=== PATIENT | male | born 1945 | race Caucasian/White ===

== ENCOUNTER → 2016-08-02 | Outpatient (CLI) | payer OTHER ==
[~2016-08-02] VITALS: Ht 170.2 cm; Wt 110.2 kg
[~2016-08-02] MED LIST: AAA; ADVAIR HFA 230M12 GM INH; ALBUTEROL INHAL17 GM IH; ALLEGRA ALLERGY60 MG PO; ALLEGRA-D 24 H1 EACH PO; ALLEGRA180 MG PO; AMBIEN 10 MG TA10 MG; AMBIEN 5 MG TABL5 M1 PO; AMLODIPINE BESY10 MG PO; AMOXICILLIN 50500 M1 PO; AZITHROMYCIN 2250 MG PO; CALCITRATE200 MG; CALCITRIOL0.25 MCG PO; CALCITRIOL0.5 MCG; CENTRUM SILVER1 EAC1 PO; CLONAZEPAM 0.50.5 M1; CLONAZEPAM 0.50.5 M1 PO; CLONAZEPAM 1 MG1 M1 PO; COLACE100 MG PO; CYCLOBENZAPRINE10 MG; CYMBALTA60 MG PO; DID NOT BRING LIST; DILAUDID 4 MG TA4 M1 PO; DOLOPHINE HCL10 MG PO; DOLOPHINE HCL5 MG; DOXYCYCLINE 10100 M1 PO; E-MYCIN250 MG PO; ERGOCALCIF50000 UNIT PO; EXELON 9.5 MG9.5 MG; EXELON 9.5 MG9.5 MG TD; EXELON 9.5 MG9.5 MG TOP; EXELON 9.5 MG9.5 MG TRANSDERM; EXELON1 EAC1 TRANSDERM; FISH OIL 1,0001 EAC7; FLEXERIL; FLEXERIL PO; FLOMAX PO; GLUCOSAMINE SU500 MG; GLUCOSE4 GM PO; GLYCOLAX17 GM PO; HUMALOG PE100 UNIT/M SC; LEVAQUIN 500 M500 M1 PO; LEVOTHROID75 MCG PO; LEXAPRO 10 MG T10 M1 PO; LEXAPRO 10 MG T10 M2 PO; LEXAPRO 10 MG T10 MG PO; LEXAPRO20 MG PO; LISINOPRIL2.5 MG PO; LOVAZA1000 MG PO; METHADONE HCL 110 M1 PO; METHADONE HCL 110 MG PO; METHADONE HCL5 MG PO; METHADOSE10 M1 PO; METOCLOPRAMIDE PO; NAMENDA 10 MG T10 MG PO; NAMENDA 5 MG TAB5 M1 PO; NEURONTIN 300300 M1 PO; NEURONTIN 300M300 M2 PO; NEURONTIN600 MG; NEURONTIN600 MG PO; NEXIUM 40 MG CA40 M1 PO; NITROGLYCERIN0.4 MG; NITROGLYCERIN0.4 MG SUBLING; NORVASC 5 MG TAB5 MG PO; NORVASC10 MG; ONDANSETRON ODT8 MG; OTHER; OXYCODONE HCL15 MG PO; OXYCODONE HCL5 M1; OXYCONTIN15 MG PO; PAIN CREAM; PANTOPRAZOLE SO40 M1 PO; PENNSAID112 GM TOP; PERCOCET 10-321 EACH PO; PLAVIX 75 MG TA75 M1 PO; PLAVIX 75 MG TA75 MG PO; POTASSIUM CHLO10 ME1 PO; PRILOSEC40 MG PO; PROTONIX40 MG PO; PROVIGIL 100 M100 MG; PROVIGIL 100 M100 MG PO; PROVIGIL 200 M200 M1 PO; PROVIGIL PO; REGLAN 10 MG TA10 M1 PO; REGLAN 10 MG TA10 MG PO; ROXICODONE15 M1 PO; ROXICODONE5 M1 PO; SINGULAIR 10 MG10 M1; SINGULAIR 10 MG10 M1 PO; SLOW-MAG64 MG PO; STOOL SOFTENER240 MG PO; SYNTHROID125 MCG; SYNTHROID75 MCG PO; SYSTANE 0.3-0.1 EACH OP; TIZANIDINE HCL 22 M1 PO; TRIAMCINOLONE10 G1; VIIBRYD20 MG PO; VITAMIN D400 UNI1 PO; VITAMIN D400 UNI4; VOLTAREN GEL 1100 G2 TOP; ZOFRAN ODT4 MG PO; ZOFRAN8 MG PO; [UNRECOGNIZED DRUG - OTHER]; [UNRECOGNIZED DRUG - OTHER]
--- NOTE | ~2016-08-02 | HPC ---
[facility] [place] [place] [address] PAIN MANAGEMENT CONSULTATION Name: OMARI RUSSO [id number] Admission: 08/02/16 Attend Phys: Ignacio Ni DO Discharge: Date of : 43 Report #: [id number] THIS REPORT FOR: //name// CC: Tino Ni HISTORY OF PRESENT ILLNESS: The patient is a pleasant 71-year-old gentleman being treated for myofascial pain, neuropathic pain, and lumbar radiculopathy, requiring complex medication management. He was last seen in the pain clinic on 05/17/[address] Nehemiah Smith in my absence. I had prior seen him on 03/01/2016. He has continued on baseline medication unchanged. He uses methadone 5 mg b.i.d., Percocet 10/325 one tablet 2-3 times a day, limit 75 tablets for 30 days, gabapentin 300 mg t.i.d., Namenda 10 mg b.i.d. and tizanidine 2 mg up to 4 times a day for spasm. He returns to pain clinic today noting medications are generally providing sufficient analgesia to participate in activities of daily living. Notes subjective pain score primarily back and both legs with some ongoing headaches. Subjective pain score of 5/10, exacerbated with activity and walking. PHYSICAL EXAMINATION: Unchanged. GENERAL: A 71-year-old gentleman, moderately obese with a BMI of 38.1 kilograms per meter squared. VITAL SIGNS: Blood pressure is modestly elevated at 151/90, pulse is 77, respirations are 18. NEUROLOGIC: Alert and oriented to person, place, and time. Judged to be a reasonable historian. He has a little bit of shy affect, somewhat of stammering speech pattern. This is all unchanged from baseline. I have been treating the patient now for quite some time. I believe our initial contact was back in 2005. He rises from the chair using armrest. Gait is antalgic, but tandem. He is not using a cane presently. Some diffuse tenderness across the low back. He has osteoarthritis of bilateral upper and lower extremities. ASSESSMENT: Chronic pain syndrome requiring complex medication management, history of lumbar radiculopathy, myofascial pain, and stable on baseline medications. RECOMMENDATION: Renew current medication unchanged for another 3 months. Pain impact score is about 20/70. Opiate risk assessment tool scores patient in the low risk category. Follow up in 3 months for reevaluation. <ELECTRONICALLY SIGNED> By: Ignacio Ni DO 08/07/16 0758 1201 1933 Ignacio Ni DO /nt
[2016-08-02 11:05] VITALS: BP 151/90
== END ==
LOC: PAIN 07:06
DX: M54.16 Radiculopathy, lumbar region (principal); G89.4 Chronic pain syndrome; M79.1 Myalgia; E66.01 Morbid (severe) obesity due to excess calories; Z68.38 Body mass index [BMI] 38.0-38.9, adult; I10 Essential (primary) hypertension; R09.02 Hypoxemia; Z88.1 Allergy status to other antibiotic agents

== ENCOUNTER → 2016-11-28 | Outpatient (CLI) | payer OTHER ==
[~2016-11-28] VITALS: Ht 170.2 cm; Wt 112.0 kg
[~2016-11-28] MED LIST changes: +ZOLOFT100 MG PO
--- NOTE | ~2016-11-28 | HPC ---
[facility] [address] [place] [address] PAIN MANAGEMENT CONSULTATION Name: OMARI RUSSO Room #: REG CLK[facility] RosaOfelia.#: [id number] Admission: 11/28/16 Attend Phys: Ignacio Ni DO Discharge: Date of : 43 Report #: [id number] THIS REPORT FOR: //name// CC: Tino Ni The patient is a 71-year-old gentleman, well known to pain clinic, typically treated for myofascial pain, neuropathic pain, lumbar radiculopathy requiring high risk complex medication management. Last seen in the pain clinic 08/02/2016. He has been maintained for quite some time on current medication including methadone 5 mg b.i.d., Percocet 10/325 one tablet 2-3 times a day, limit 75 tablets for 30 days, gabapentin 300 mg t.i.d., Namenda 10 mg b.i.d., tizanidine 2 mg up to 4 times a day for spasm. He returns to pain clinic today noting that overall medications are providing sufficient analgesia to participate in activities of daily living. He is the active "parent" caring for his two grandchildren. Daughter graduated from high school in the last year the June 25, son is gradually this year and has been accepted to [employer]. The patient is very proud of their accomplishments. He has a little bit of stuttering speech, but he is alert and oriented to person, place and time. He notes his pain is a 5 on VAS, primarily low back, both legs, and has some ongoing headaches. PHYSICAL EXAMINATION: Shows a 71-year-old gentleman, moderately obese with a BMI of 38.7 kg/m2, blood pressure 154/78, pulse 90, and respirations 20. Alert and oriented, again a little bit of stutter speech defect. The patient exhibits some word searching. This is somewhat his baseline. He does have some chronic anxiety and takes Zoloft for depression. Diabetes treated with insulin. Hypertension and coronary artery disease, takes amlodipine and Plavix. 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 He uses clonazepam 0.5 at bedtime for leg spasm. Other medications include the aforementioned schedule 2 narcotic and membrane stabilizing agents. Physical exam is otherwise unchanged from last visit. We reviewed the fact that opiate medications are being used to provide analgesia adequate to support activities of daily living, not attempting to achieve a specific pain score on the 0-10 Visual Analog Scale. The current opiate medications are providing sufficient analgesia to allow the patient to participate in activities of daily living. The patient is not exhibiting any aberrant behavior suggestive of drug diversion. The patient is not having any adverse reactions to medications. The patient is not suffering from daytime somnolence or mental acuity changes. The patient is managing opiate-induced [address] [address] PAIN MANAGEMENT CONSULTATION Name: OMARI RUSSO Room #: REG CL Vikki#: [id number] Admission: 11/28/16 Attend Phys: Ignacio Ni DO Discharge: Date of : 43 Report #: [id number] constipation with appropriate rbzu-xjs-qulrvrn agents and dietary considerations. The patient was counseled on concern for caution with operating a motor vehicle while using opiate medications. A physical exam was performed and the patient's functional status was evaluated. All patients with back pain were advised against the bed rest greater than 4 days and were advised to return to normal activities. Pain score assessment was noted and the treatment plan was reviewed with the patient. All current medications, both prescribed and OTC were reviewed and reconciled on the electronic medical record. Tobacco screening was accomplished and smoking cessation was advised when indicated. BMI was noted and diet/exercise modification was recommended for all patients following outside normal parameters. I reviewed with the patient today their responsibilities to safeguard prescription medications, reviewed their responsibility to utilize medications only as prescribed by the physician. They are to seek and receive pain medications only from 1 physician group ( [facility]). They are to use 1 pharmacy and keep the clinic informed if they change pharmacies. Their responsibilities include making followup visits in a timely fashion and to avoid abrupt discontinuation of medication usage. Their responsibilities further include bringing their medications (bottles from the pharmacy with residual pills) to the visit for possible confirmation of pill counts and the patient understands it is their responsibility to submit to random drug screens to ensure both that the medications prescribed are present, and that no other controlled substances are present. All prescriptions provided today were generated electronically. ASSESSMENT: Myofascial pain, neuropathic pain, axial back pain, and lumbar radiculopathy, all requiring high risk complex medication management, stable on baseline medications. RECOMMENDATIONS: Continue current medication unchanged, methadone 5 mg b.i.d., Percocet 10/325 one tablet 2-3 times a day, limit 75 tablets for 30 days, gabapentin 300 mg t.i.d., Namenda 10 mg b.i.d., tizanidine 2 mg up to 4 times a day. I have renewed the patient's [place] disabled placard, he cannot walk greater than 50 feet without stopping. Discharged in good and stable condition today. Follow up in 2 months for reevaluation. <ELECTRONICALLY SIGNED> By: Ignacio Ni DO 11/29/16 0705 1234 1710 Ignacio Ni DO /nt
[2016-11-28 10:01] VITALS: BP 154/78
== END ==
LOC: PAIN 06:59
DX: M54.16 Radiculopathy, lumbar region (principal); M79.1 Myalgia

== ENCOUNTER → 2016-12-26 | Outpatient (CLI) | payer OTHER | LOC: MRI 08:27 → ULTRA 08:27 → MRI 14:59 | DX: M47.892 Other spondylosis, cervical region (principal); R20.2 Paresthesia of skin; R92.8 Other abnormal and inconclusive findings on diagnostic imaging of breast ==

== ENCOUNTER 2017-01-22 17:28 | Emergency (ER) | payer OTHER ==
[~2017-01-22] VITALS: Ht 185.4 cm; Wt 97.5 kg
--- NOTE | ~2017-01-22 | EKG ---
[place] [address] [address] [facility] [place] [address] ELECTROCARDIOGRAM REPORT Name: OMARI RUSSO Room #: REG Vikki#: [id number] Admission: 01/22/17 Attend Phys: Discharge: Date of : 43 Report #: [id number] THIS REPORT FOR: //name// [facility] ED Test Date: 2017-01-22 Test Time: 18:11:58 Pat Name: OMARI RUSSO Department: Room: Gender: M Historical Records Administrator: [id number] : 1945 Requested By: Tino Khan Order Number: [id number] MD: Measurements Intervals [place] Rate: 70 P: 7 [place]: 174 QRS: -30 QRSD: 109 T: -57 QT: 406 QTc: 439 Interpretive Statements Sinus rhythm Left axis deviation Anteroseptal infarct, age indeterminate Nonspecific T abnormalities, inferior leads Compared to ECG 01/09/2015 15:05:37 Left-axis deviation now present Myocardial infarct finding now present T-wave abnormality still present [email or web address] By: 181 [id number] Epiphany EpiphanyMD /EPI
[2017-01-22 18:22] LABS: HEMATOCRIT 38.6 % (42.0-52.0); HEMOGLOBIN 12.6 gm/dL (14.0-18.0); MCH 32.1 pg (26.0-34.0); MCHC 32.7 g/dL (28.0-37.0); MCV 98.2 fL (80.0-100.0); RBC 3.93 mil/uL (4.50-6.00); RDW 14.7 % (10.5-14.5); WBC 4.1 thou/uL (4.0-11.0)
[2017-01-22 18:29] LABS: ANION GAP 6 mmol/L (7-16); BUN 16 mg/dL (7-18); CALCIUM 8.5 mg/dL (8.5-10.1); CHLORIDE 104 mmol/L (98-107); CO2 31 mmol/L (21-32); GLUCOSE 186 mg/dL (74-106); POTASSIUM 3.8 mmol/L (3.5-5.1); SODIUM 141 mmol/L (136-145)
[2017-01-22 18:37] LABS: TROPONIN-I < 0.04 ng/mL (<0.06)
[2017-01-22 20:14] VITALS: BP 144/81
[2017-01-23] MEDS ORDERED: TIZANIDINE HCL 22 M1 PO (09:52)
[2017-01-23] MEDS ORDERED: NEURONTIN 300300 M1 PO (09:52)
[2017-01-23] MEDS ORDERED: PERCOCET 10-321 EACH PO (09:52)
[2017-01-23] MEDS ORDERED: NAMENDA 10 MG T10 MG PO (09:52)
[2017-01-23] MEDS ORDERED: METHADONE HCL5 MG PO (09:52)
== END 2017-01-22 20:15 | disposition left against medical advice (07) ==
LOC: ER 17:28
PROVIDERS: Emergency Medicine
DX: S01.81XA Laceration without foreign body of other part of head, initial encounter (principal); E11.9 Type 2 diabetes mellitus without complications; J44.9 Chronic obstructive pulmonary disease, unspecified; Z86.73 Personal history of transient ischemic attack (TIA), and cerebral infarction without residual deficits; Z98.890 Other specified postprocedural states; Z88.1 Allergy status to other antibiotic agents; Z88.6 Allergy status to analgesic agent; Z88.8 Allergy status to other drugs, medicaments and biological substances; Z88.2 Allergy status to sulfonamides; Z91.011 Allergy to milk products; W18.09XA Striking against other object with subsequent fall, initial encounter; Y93.01 Activity, walking, marching and hiking; Y92.89 Other specified places as the place of occurrence of the external cause; Y99.8 Other external cause status

== ENCOUNTER → 2017-06-05 | Outpatient (CLI) | payer OTHER ==
[~2017-06-05] VITALS: Ht 170.2 cm; Wt 116.1 kg
[~2017-06-05] MED LIST changes: +B-12500 MCG PO; +FOLIC ACID 40400 MC1 PO; +IPRAT-ALBUT 0.5-3 ML INH; +LANTUS100 UNIT/M SUBQ; +MIRALAX17 GM PO; +NOVOLOG100 UNIT/1 SUBQ
--- NOTE | ~2017-06-05 | HPC ---
[facility] [place] [address] [place] [address] PAIN MANAGEMENT CONSULTATION Name: OMARI RUSSO [facility] #[facility] [id number] Admission: 06/05/17 Attend Phys: Ignacio Ni DO Discharge: Date of : 43 Report #: [id number] THIS REPORT FOR: //name// CC: Tino Ni HISTORY OF PRESENT ILLNESS: The patient is a very pleasant 72-year-old gentleman long treated for symptomatic lumbar radiculopathy, cervical radiculopathy, axial back pain requiring complex medication management. At last visit, on 02/12/2017, we continued the patient on baseline medication. He prior had a cervical epidural injection back in January with overall improvement of baseline pain. He returns to pain clinic today noting pain remains problematic 6-7 on a VAS. He would like to repeat lumbar epidural injection due to some increasing lumbar radicular pain and paresthesia, though he has continued on his Eliquis. PHYSICAL EXAMINATION: Shows a 72-year-old gentleman, BMI is quite elevated at 40.1 kilograms per meter squared. She has subjective pain score of 6-7 on a VAS. Blood pressure 138/77, pulse 82, respiration 16. He has had a little bit of subjective dizziness, though he denies recent falls. Extraocular muscles are intact. There is no nystagmus, lateral gaze deviation. Cervical range of motion is full. Upper extremity strength is preserved. Rises from chair using armrest. Has a modestly antalgic gait. Lumbar flexion is good to 80 degrees, but upon arising he does have some subjective vertigo. Again, no nystagmus noted. Lower extremity strength is modestly diminished, but symmetric. Straight leg raise is grossly positive bilaterally, right greater than left. We reviewed the fact that opiate medications are being used to provide analgesia adequate to support activities of daily living, not attempting to achieve a specific pain score on the 0-10 Visual Analog Scale. The current opiate medications are providing sufficient analgesia to allow the patient to participate in activities of daily living. The patient is not exhibiting any aberrant behavior suggestive of drug diversion. The patient is not having any adverse reactions to medications. The patient is not suffering from daytime somnolence or mental acuity changes. The patient is managing opiate-induced constipation with appropriate qcvd-vhh-fkwztlo agents and dietary considerations. The patient was counseled on concern for caution with operating a motor vehicle while using opiate medications. A physical exam was performed and the patient's functional status was evaluated. All patients with back pain were advised against the bed rest greater than 4 days and were advised to return to normal activities. Pain score assessment was noted and the treatment plan was reviewed with the patient. All current medications, both prescribed and OTC were reviewed and reconciled on the electronic medical record. Tobacco screening was accomplished and smoking cessation was advised when indicated. BMI was noted and diet/[place] [address] PAIN MANAGEMENT CONSULTATION Name: OMARI RUSSO Room #: REG CL Vikki#: [id number] Admission: 06/05/17 Attend Phys: Ignacio Ni DO Discharge: Date of : 43 Report #: [id number] modification was recommended for all patients following outside normal parameters. I reviewed with the patient today their responsibilities to safeguard prescription medications, reviewed their responsibility to utilize medications only as prescribed by the physician. They are to seek and receive pain medications only from 1 physician group ( [facility]). They are to use 1 pharmacy and keep the clinic informed if they change pharmacies. Their responsibilities include making followup visits in a timely fashion and to avoid abrupt discontinuation of medication usage. Their responsibilities further include bringing their medications (bottles from the pharmacy with residual pills) to the visit for possible confirmation of pill counts and the patient understands it is their responsibility to submit to random drug screens to ensure both that the medications prescribed are present, and that no other controlled substances are present. All prescriptions provided today were generated electronically. ASSESSMENT: 1. Symptomatic lumbar radiculopathy. 2. Myofascial pain. 3. History of cervical radiculopathy, requiring complex medication management, stable on baseline medications. RECOMMENDATIONS: 1. Continue current medication unchanged, methadone 5 mg b.i.d.; Percocet 10/325 one tablet 2-3 times a day, limit 75 tablets for 30 days; gabapentin 300 mg t.i.d.; tizanidine 2 mg up to 4 times a day for spasm. Continue Namenda 10 mg b.i.d. Discharged in good and stable condition. 2. Follow up next week for epidural injection under fluoroscopy, lumbar spine, off Plavix for 7 days (L4-L5). <ELECTRONICALLY SIGNED> By: Ignacio Ni DO 06/11/17 0744 1217 1314 Ignacio Ni DO /nt
[2017-06-05 11:24] VITALS: BP 138/77
== END ==
LOC: PAIN 07:01
DX: M54.16 Radiculopathy, lumbar region (principal); M54.12 Radiculopathy, cervical region; M79.1 Myalgia; Z79.899 Other long term (current) drug therapy

== ENCOUNTER → 2017-11-14 | Outpatient (CLI) | payer OTHER ==
[~2017-11-14] VITALS: Ht 170.2 cm; Wt 117.5 kg
[~2017-11-14] MED LIST changes: -B-12500 MCG PO; -FOLIC ACID 40400 MC1 PO; -IPRAT-ALBUT 0.5-3 ML INH; -LANTUS100 UNIT/M SUBQ; -MIRALAX17 GM PO; -NOVOLOG100 UNIT/1 SUBQ
--- NOTE | ~2017-11-14 | HPC ---
[facility] [place] [address] PAIN MANAGEMENT CONSULTATION Name: OMARI RUSSO Room #: REG LAUREN YouOfeliaScarletOfelia#: [id number] Admission: 11/14/17 Attend Phys: Steve Smith MD Discharge: Date of : 43 Report #: [id number] THIS REPORT FOR: //name// CC: Tino Smith DATE OF SERVICE: 11/14/2017 FOLLOWUP COMPLAINT: Here for medications. FOLLOWUP HISTORY: The patient is a 72-year-old gentleman who has been seen and followed in the pain clinic. He has been seen by Dr. Ignacio Ni. He has multiple morbidities, which include chronic low back pain. Has axial back pain as well as cervical pain. He has been treated with complex medication management. He takes Plavix. He has undergone epidural steroid injections. He is on Plavix today. He would like to consider an epidural steroid injection. He would like to have his medications renewed. He will stop taking his Plavix medication and return to the pain clinic for an epidural steroid injection in about a week. He rates his pain as an 8/10. Also, has a pinched nerve in his neck as well as involvement in his left hand. He has some pain in his low back that radiates down into the L5-S1 area. He feels that his medications are helpful. Not having any complication from their use. He is aware that opioid medications can be habit forming. He is aware that they can be less effective over time as a result of tolerance. ALLERGIES: IODINE DYE, SULFA, ASPIRIN, CYMBALTA, AND MELOXICAM. CURRENT MEDICATIONS: Tizanidine 2 mg 4 times daily, oxycodone 10/325, methadone 5 mg b.i.d., Namenda 10 mg b.i.d., gabapentin 300 mg t.i.d., Flexeril 10 mg t.i.d., Zoloft 100 mg, insulin subcutaneous 4 times daily, Exelon 9.5 mg patch, Reglan 10 mg before meals and at bedtime, Plavix 75 mg, clonazepam 0.5 mg, Zofran 8 mg b.i.d., Nitrostat 0.4 mg sublingual, Lovaza 100 mg b.i.d., Drisdol 50,000 units weekly, Friday, Friday, and Friday, and amlodipine 10 mg daily. PAST MEDICAL HISTORY: Diabetes, lung disease, and liver disease. PAST SURGICAL HISTORY: Carpal tunnel surgery bilaterally in 1999, knee surgery scope in 1999, and muscle biopsies x 3. SOCIAL HISTORY: Disabled. REVIEW OF SYSTEMS: Headaches, chronic sinus problems, abdominal pain, lightheadedness, easy bruising. LABORATORY DATA: MRI of the cervical spine dated 12/26/2016: 1. C3-C4 disk narrowing with a prominent posterior disk/[place] [address] PAIN MANAGEMENT CONSULTATION Name: OMARI RUSSO Room #: REG Nora Florez#: [id number] Admission: 11/14/17 Attend Phys: Steve Smith MD Discharge: Date of : 43 Report #: [id number] effacement of the ventral thecal sac, no significant spinal canal stenosis. This disk osteophyte complex combines with bilateral uncovertebral joint spurring and facet arthropathy to cause fairly severe bilateral neural foraminal stenosis. 2. C5-C4 disk narrowing with a small posterior disk osteophyte complex without central spinal canal stenosis. There is bilateral uncovertebral joint spurring/hypertrophy causing bilateral neural foraminal stenosis, more severe on the right. 3. C5-C6 disk narrowing with a prominent posterior disk osteophyte complex causing central spinal canal stenosis and slight spinal cord deformity. It combines with bilateral uncovertebral joint spurring/hypertrophy and mild bilateral facet arthrosis to cause fairly severe bilateral neural foraminal stenosis. 4. C6-C7 disk narrowing with a small posterior disk/osteophyte complex without central spinal canal stenosis. There is bilateral uncovertebral joint spurring/hypertrophy, that combines with mild facet arthropathy to cause bilateral neural foraminal stenosis. C7-T1, mild facet arthrosis with slight degenerative anterolisthesis of C7 on T1. There is left uncovertebral joint spurring causing left neural foraminal stenosis. MRI of the lumbar spine dated 07/24/2006, findings: There is diffuse lower lumbar facet degenerative changes. Endplate degenerative changes are seen at L5-S1. There is disk bulging. The axial images at L5-S1 showed diffuse bulging asymmetry to the right with bilateral foraminal and lateral recess narrowing. Central canal is maintained. L4-L5 shows facet degenerative changes with some disk bulging without focal herniation or asymmetry. L3-L4 and L2-L3 showed no herniated disk pulposus, or central spinal stenosis. There is mild wedging of L2 which appears chronic. PAIN CLINIC ASSESSMENT: 1. History of osteoarthritis involving the left lower extremity, left upper extremity, right lower extremity, and right upper extremity. The patient is not being treated for rheumatoid arthritis. 2. Height 5 feet 7 inches, weight 259 pounds, BMI is 40. 3. Vital signs: Blood pressure 141/80, pulse 86, respiratory rate is 18, room air saturation 98%. 4. Pain intensity 8/10. 5. Fall risk. The patient has not fallen in the last 3 months. 6. Blood thinner. The patient is on Plavix. 7. History of hypertension. The patient is being treated for hypertension. 8. Risk assessment tool, low risk for use of opioids. 9. Functional assessment tool. 10. Recreational drugs. The patient denies use of recreational drugs. 11. Tobacco: The patient has never smoked. 12. Alcohol: The patient denies use of alcoholic beverages. [facility] [address] [place] [address] PAIN MANAGEMENT CONSULTATION Name: OMARI RUSSO Room #: REG CLI [facility]#: [id number] Admission: 11/14/17 Attend Phys: Steve Smith MD Discharge: Date of : 43 Report #: [id number] PHYSICAL EXAMINATION: GENERAL: The patient is a well-developed, well-nourished white male, appears his stated age. He is slightly obese. Affect is appropriate. Speech is fluent. HEENT: Normocephalic, atraumatic. Extraocular eye muscles intact. Sclerae nonicteric. Mucous membranes are moist. CHEST: Clear to auscultation. EXTREMITIES: Upper extremity muscle strength is judged to be 5/5 for the major muscle groups. The patient without significant scoliosis, kyphosis, or lordosis. The patient has pain and discomfort that is in his low back area. Radiates down into the L5-S1 area. He would like to proceed with an epidural steroid injection. The patient is on Plavix. We will have the patient stop the Plavix medication and then we will proceed with an epidural steroid injection. IMPRESSION: 1. Chronic low back pain. 2. Diabetes. 3. Lung disease. 4. Liver disease. RECOMMENDATION: We will proceed with an epidural steroid injection. The patient will stop his Plavix for the next 5 days. He will then return to the pain clinic at which time we will proceed with an epidural steroid injection to help with control the pain. We would like to thank you for letting us participate in his care. We hope he continues to improve. By: 1800 0311 Steve Smith MD /nt
[2017-11-14 14:41] VITALS: BP 141/80
== END ==
LOC: PAIN 07:04
DX: M54.5 Low back pain (principal); G89.29 Other chronic pain; E11.9 Type 2 diabetes mellitus without complications; J98.4 Other disorders of lung; K76.9 Liver disease, unspecified; Z79.899 Other long term (current) drug therapy

== ENCOUNTER 2017-12-14 21:20 | Emergency (ER) | payer OTHER ==
[~2017-12-14] VITALS: Ht 170.2 cm; Wt 113.4 kg
[2017-12-14 21:21] VITALS: BP 128/77
== END 2017-12-14 22:00 | disposition home or self-care (01) ==
LOC: ER 21:20
DX: T16.1XXA Foreign body in right ear, initial encounter (principal); J44.9 Chronic obstructive pulmonary disease, unspecified; E11.9 Type 2 diabetes mellitus without complications; Z79.4 Long term (current) use of insulin; Z86.73 Personal history of transient ischemic attack (TIA), and cerebral infarction without residual deficits; Z90.49 Acquired absence of other specified parts of digestive tract; Z88.1 Allergy status to other antibiotic agents; Z88.6 Allergy status to analgesic agent; Z88.8 Allergy status to other drugs, medicaments and biological substances; Z91.041 Radiographic dye allergy status; Z88.2 Allergy status to sulfonamides; Z91.011 Allergy to milk products

== ENCOUNTER 2018-01-07 02:04 | Inpatient (IN) | payer OTHER ==
[~2018-01-07] VITALS: Ht 170.2 cm; Wt 117.9 kg
--- NOTE | ~2018-01-07 | EKG ---
[address] [place] [address] ELECTROCARDIOGRAM REPORT Name: OMARI RUSSO Room #: 359-P ADM IN M.R.#: [id number] Admission: 01/07/18 Attend Phys: Latia Mitchell MD Discharge: Date of : 43 Report #: [id number] THIS REPORT FOR: //name// [facility] ED Test Date: 2018-01-07 Test Time: 02:45:31 Pat Name: OMARI RUSSO Department: Room: 359 Gender: M Suede Brusher: ARNEL ROBLES : 1945 Requested By: Nelli Valentine Order Number: [id number] MD: Edenilson Marcus Measurements Intervals [place] Rate: 98 P: 34 [place]: 139 QRS: -8 QRSD: 89 T: 18 QT: 348 QTc: 445 Interpretive Statements Sinus rhythm Poor R wave progression Compared to ECG 01/22/2017 18:11:58 Nonspecific T wave abnormality no longer present Electronically Signed On 01-07-2018 9:15:35 CDT by Edenilson Marcus [email or web address] <ELECTRONICALLY SIGNED> By: Edenilson Marcus MD, [facility] 01/07/18 0915 0245 Edenilson Marcus MD, [facility] /EPI
--- NOTE | ~2018-01-07 | EKG ---
[address] [address] ELECTROCARDIOGRAM REPORT Name: OMARI RUSSO Room #: 359-P ADM IN M.R.#: [id number] Admission: 01/07/18 Attend Phys: Latia Mitchell MD Discharge: Date of : 43 Report #: [id number] THIS REPORT FOR: //name// [facility] ED Test Date: 2018-01-07 Test Time: 02:25:10 Pat Name: OMARI RUSSO Department: Room: 359 Gender: M Driller Helper: lyndon : 1945 Requested By: Nelli Valentine Order Number: [id number] MD: Edenilson Marcus Measurements Intervals [place] Rate: 94 P: 37 [place]: 172 QRS: -20 QRSD: 86 T: QT: 430 QTc: 538 Interpretive Statements Sinus rhythm Borderline left axis deviation Borderline T wave abnormalities Prolonged QT interval Compared to ECG 01/22/2017 18:11:58 Prolonged QT interval now present Myocardial infarct finding no longer present T-wave abnormality still present Electronically Signed On 01-07-2018 9:14:36 CDT by Edenilson Marcus [email or web address] <ELECTRONICALLY SIGNED> By: Edenilson Marcus MD, FAC 01/07/18 0914 4 4 Edenilson Marcus MD, FAC /EPI
[2018-01-07 02:14] VITALS: BP 126/87
[2018-01-07 02:45] LABS: BE(vivo) 2.7 mmol/L (-2 to +3); HCO3 28.3 mmol/L (22.0-26.0); PCO2 48.1 mmHg (35.0-45.0); PO2 70.3 mmHg (80.0-100.0); pH 7.387 (7.360-7.450); sO2 93.8 % (92.0-98.0)
[2018-01-07 02:55] LABS: ABSOLUTE NEUTROPHILS 3.3 thou/uL (1.4-8.2); ANION GAP 8 mmol/L (7-16); BASOPHILS 0.7 % (0.0-2.0); BUN 16 mg/dL (7-18); CALCIUM 8.7 mg/dL (8.5-10.1); CHLORIDE 105 mmol/L (98-107); CO2 30 mmol/L (21-32); CREATININE 0.9 mg/dL (0.7-1.3); EOSINOPHILS 4.5 % (0.0-3.0); GLUCOSE 125 mg/dL (74-106); HEMATOCRIT 29.4 % (42.0-52.0); HEMOGLOBIN 9.4 gm/dL (14.0-18.0); LYMPHOCYTES 17.2 % (24.0-44.0); MCH 29.2 pg (26.0-34.0); MCHC 32.1 g/dL (28.0-37.0); MCV 91.1 fL (80.0-100.0); MONOCYTES 11.3 % (1.0-8.0); PLATELET COUNT 215 thou/uL (150-400); POLYS 66.3 % (36.0-66.0); POTASSIUM 4.2 mmol/L (3.5-5.1); RBC 3.23 mil/uL (4.50-6.00); RDW 20.6 % (10.5-14.5); SODIUM 143 mmol/L (136-145)
[2018-01-07 03:04] LABS: ALBUMIN 3.8 g/dL (3.4-5.0); MAGNESIUM 2.1 mg/dL (1.8-2.4); SGOT 33 U/L (15-37); SGPT 25 U/L (30-65); TOTAL BILIRUBIN 0.6 mg/dL (<0.1-1.0); TOTAL PROTEIN 7.7 g/dL (6.4-8.2); TROPONIN-I <0.06 ng/mL (<0.06)
[2018-01-07 04:35] LABS: ANISOCYTOSIS 2+; LARGE PLATELETS FEW; OVALOCYTES 1+
[2018-01-07 06:47] VITALS: BP 151/86
[2018-01-07 07:11] VITALS: BP 125/73
[2018-01-07 07:50] LABS: % SATURATION 15 % (20-39); IRON 53 ug/dL (65-175); TIBC 359 ug/dL (250-450)
[2018-01-07 08:01] VITALS: BP 155/79
[2018-01-07 08:12] LABS: FOLIC ACID 5.8 ng/mL (8.6-58.9)
[2018-01-07 15:14] VITALS: BP 135/74
[2018-01-07 19:10] VITALS: BP 126/77
[2018-01-08 00:01] VITALS: BP 118/86
[2018-01-08 03:59] VITALS: BP 130/73
[2018-01-08 05:40] LABS: HEMATOCRIT 27.6 % (42.0-52.0); HEMOGLOBIN 8.8 gm/dL (14.0-18.0); MCH 29.2 pg (26.0-34.0); MCHC 31.7 g/dL (28.0-37.0); MCV 91.9 fL (80.0-100.0); WBC 6.2 thou/uL (4.0-11.0)
[2018-01-08 05:53] LABS: CALCIUM 8.5 mg/dL (8.5-10.1); CREATININE 0.9 mg/dL (0.7-1.3); POTASSIUM 4.6 mmol/L (3.5-5.1)
[2018-01-08 08:22] VITALS: BP 135/82
[2018-01-08 16:16] VITALS: BP 146/78
[2018-01-08 19:25] VITALS: BP 122/69
[2018-01-09 04:20] VITALS: BP 135/87
[2018-01-09 05:41] LABS: HEMATOCRIT 27.8 % (42.0-52.0); MCH 29.9 pg (26.0-34.0); MCHC 32.5 g/dL (28.0-37.0); RBC 3.02 mil/uL (4.50-6.00); RDW 21.5 % (10.5-14.5); WBC 7.1 thou/uL (4.0-11.0)
[2018-01-09 05:56] LABS: CALCIUM 8.7 mg/dL (8.5-10.1); MAGNESIUM 2.3 mg/dL (1.8-2.4); POTASSIUM 4.7 mmol/L (3.5-5.1)
[2018-01-09 07:20] VITALS: BP 124/63
[2018-01-09 12:05] VITALS: BP 118/61
[2018-01-09 16:43] VITALS: BP 118/61
[2018-01-09 19:19] VITALS: BP 133/66
[2018-01-10 07:14] LABS: HEMATOCRIT 27.3 % (42.0-52.0); MCH 30.2 pg (26.0-34.0); MCHC 33.2 g/dL (28.0-37.0); WBC 7.7 thou/uL (4.0-11.0)
[2018-01-10 07:25] LABS: CALCIUM 8.7 mg/dL (8.5-10.1); POTASSIUM 4.1 mmol/L (3.5-5.1)
[2018-01-10 08:18] VITALS: BP 119/69
[2018-01-10 20:13] VITALS: BP 124/72
[2018-01-11 07:59] VITALS: BP 131/80
[2018-01-11 19:57] VITALS: BP 136/83
[2018-01-12 07:15] VITALS: BP 148/88
[2018-01-12 08:43] VITALS: BP 148/88
[2018-01-12] MEDS ORDERED: FOLIC ACID 40400 MC1 PO (12:02)
[2018-01-12] MEDS ORDERED: LANTUS100 UNIT/M SUBQ (12:02)
[2018-01-12] MEDS ORDERED: B-12500 MCG PO (12:02)
== END 2018-01-12 18:13 | DRG 189 ==
LOC: ER 02:04 → EROBS 04:43 → 3W 04:43 → SICU 04:43 → 3W 07:43 → SICU 01-09 11:56 → ENTRNSPT 01-12 16:29 → SICU 01-12 18:13
PROVIDERS: Hospitalist; Internal Medicine; Nurse Practitioner Acute Care; Student in an Organized Health Care Education/Training Program
DX: J96.21 Acute and chronic respiratory failure with hypoxia (principal); F11.20 Opioid dependence, uncomplicated; J44.1 Chronic obstructive pulmonary disease with (acute) exacerbation; K92.2 Gastrointestinal hemorrhage, unspecified; M54.9 Dorsalgia, unspecified; D64.9 Anemia, unspecified; Z60.2 Problems related to living alone; M62.84 Sarcopenia; F03.90 Unspecified dementia, unspecified severity, without behavioral disturbance, psychotic disturbance, mood disturbance, and anxiety; E11.43 Type 2 diabetes mellitus with diabetic autonomic (poly)neuropathy; K31.84 Gastroparesis; E53.8 Deficiency of other specified B group vitamins; I95.9 Hypotension, unspecified; M48.00 Spinal stenosis, site unspecified; M54.10 Radiculopathy, site unspecified; G89.4 Chronic pain syndrome; Z88.2 Allergy status to sulfonamides; Z90.49 Acquired absence of other specified parts of digestive tract; Z98.42 Cataract extraction status, left eye; Z98.41 Cataract extraction status, right eye; Z86.73 Personal history of transient ischemic attack (TIA), and cerebral infarction without residual deficits; Z88.8 Allergy status to other drugs, medicaments and biological substances; Z88.6 Allergy status to analgesic agent; Z88.1 Allergy status to other antibiotic agents; Z91.041 Radiographic dye allergy status; Z91.011 Allergy to milk products; Z79.4 Long term (current) use of insulin; Z28.21 Immunization not carried out because of patient refusal
CPT/HCPCS: 10879; 15002

== ENCOUNTER 2018-01-12 14:46 | Inpatient (IN) | payer OTHER ==
[~2018-01-12] VITALS: Ht 170.2 cm; Wt 117.9 kg
--- NOTE | ~2018-01-12 | H ---
[facility] [place] [address] HISTORY AND PHYSICAL Name: OMARI RUSSO Room #: 505-P ADM IN M.R.#: [id number] Admission: 01/12/18 Attend Phys: Liam Simons MD Discharge: Date of : 43 Report #: [id number] THIS REPORT FOR: //name// CC: Liam Prieto DATE OF SERVICE: 01/12/2018 HISTORY OF PRESENT ILLNESS: This is a 72-year-old male, admitted to [facility] with complaints of shortness of breath. He was diagnosed with an acute on chronic hypoxic respiratory failure and acute exacerbation of COPD. He was started on oral steroids and nebulizers, and he is requiring oxygen 24/7. The patient had deconditioned from his respiratory status and has had a significant change in functional mobility, he is now admitted to acute inpatient rehabilitation for physical and occupational therapies with a goal to return back to his home independent. Premorbidly, the patient utilized a single point cane. He did have one recent fall at home where he tripped over his dog. He denies any injuries from that fall. Currently, he denies headache or dizziness. He denies chest pain. He does have shortness of air and nonproductive cough. He denies nausea, abdominal pain, constipation or diarrhea. He denies dysuria. He denies any skin changes. He reports chronic low back pain with some radiation down bilateral lower extremities. He has had epidural injections in the past. He does have severe multilevel spinal stenosis with radiculopathy that he requires chronic narcotic use at home. PAST MEDICAL HISTORY: Type 2 diabetes, gastroparesis, carpal tunnel to bilateral hands, cholecystectomy, cataract surgery, bilateral eyes. He had a stroke in 2012. He denies residual COPD, asbestosis, chronic back pain, multilevel spinal stenosis. HABITS: He is a current nonsmoker, no alcohol use, no drug use. SOCIAL HISTORY: He is a full code. He lives in a house alone. He has 3 entry stairs. He has 12 stairs to the basement laundry. Premorbidly, he was independent with ADLs and IADLs. He was still driving. ALLERGIES: CLINDAMYCIN, ASPIRIN, CLONIDINE, CEPHALEXIN, CYMBALTA, ERYTHROMYCIN BASE, ZETIA, IODINE, MOBIC, PREGABALIN, STATINS, SULFA, AVELOX, LACTOSE WITH MILK. CURRENT MEDICATIONS: Vitamin D 50,000 units weekly, Zoloft 200 mg daily, Exelon 9.5 mg patch daily, folic acid 400 mcg daily, vitamin B12 of 500 mcg daily, Plavix 75 mg daily. Norvasc 10 mg daily. Gabapentin 300 mg 3 times a day, Reglan 10 mg a.c. and at bedtime by mouth, methadone 5 mg twice a day, Namenda 10 mg twice a day, Lantus 10 units at bedtime subq. Fish oil 2000 mg twice a day. Tizanidine 2 mg q.i.d. p.r.n. spasms. Percocet one tablet q.8 hours [facility] [address] [place] [address] HISTORY AND PHYSICAL Name: OMARI RUSSO Room #: 505-P [facility] IN M.R.#: [id number] Admission: 01/12/18 Attend Phys: Liam Simons MD Discharge: Date of : 43 Report #: [id number] p.r.n. pain. Zofran 8 mg q.12 hours p.r.n. nausea. Nitroglycerin 1 tablet every 5 minutes p.r.n. chest pain. REVIEW OF SYSTEMS: Remainder of his 14-point review of systems is negative except as listed in HPI. PHYSICAL EXAMINATION: VITAL SIGNS: 152/80, respirations 20, pulse of 68, temperature 98.1, 95% oxygen on room air. GENERAL: He is awake, alert. He is oriented x 4. He is in no acute distress. He is on 2 liters per nasal cannula. HEENT: Head is normocephalic. Eyes: EOMs are intact. No icterus. ENT: No sinus tenderness. LUNGS: Diminished in bases. No crackles, no wheeze. HEART: S1, S2, regular rate and rhythm. ABDOMEN: Bowel sounds are positive. Soft, nontender, nondistended. BACK: No CVA tenderness. SKIN: Warm, dry and intact. EXTREMITIES: Trace lower extremity edema. Negative Homans sign. Able to lift bilateral lower extremities into gravity. Functional range of motion bilateral upper and lower extremities. No clonus in the wrist. Sit to stand is standby assist, min assist, ambulating 150 feet with a cane, contact guard for 4 stairs, not able to manage the stairs with his O2 carrier and that was provided by the therapist. Toileting is min assist due to unsteadiness. PSYCHIATRIC: Pleasant affect. NEUROLOGIC: Cranial nerves 2-12 grossly intact and equal geophysical drafter bilaterally. Sensation appears intact bilateral. LABORATORY DATA: From 01/13/2018, WBCs 9.3, hemoglobin 9.4, hematocrit 28.5, platelets 214. Sodium 138, potassium 3.9, BUN 24, creatinine 0.9, glucose 119, calcium 8.4. ASSESSMENT: 1. Medical complexity with generalized debilitation. 2. Severe multilevel spinal stenosis with radiculopathy and lower extremity weakness, bilateral. 3. Acute on chronic hypoxic respiratory failure. 4. Acute exacerbation of chronic obstructive pulmonary disease, now resolved. 5. History of cerebrovascular accident in 2013. 6. Type 2 diabetes mellitus. 7. Anemia. 8. Dementia. 9. Chronic pain syndrome with chronic narcotic use. 10. Gastroparesis. PLAN: The patient is admitted to acute inpatient rehabilitation for physical [facility] [address] [place] [address] HISTORY AND PHYSICAL Name: OMARI RUSSO Room #: 505-P [facility] IN [facility].#: [id number] Admission: 01/12/18 Attend Phys: Liam Simons MD Discharge: Date of : 43 Report #: [id number] and occupational therapies. We will also ask Speech Therapy to perform a cognitive evaluation to help with any discharge planning needs as the patient lives independent. He will have Dr. Tejeda following for acute medical issues and Dr. Gordon will do a neuropsychology exam. We will have weekly team conferences. Please see extensive orders. <ELECTRONICALLY SIGNED> By: BOB William 01/15/18 1439 1034 1212 BOB William /nt
--- NOTE | ~2018-01-12 | PLAN ---
[facility] [place] [address] REHAB UNIT PLAN OF CARE Name: OMARI RUSSO Room #: 505-P ADM IN M.R.#: [id number] Admission: 01/12/18 Attend Phys: Liam Simons MD Discharge: Date of : 43 Report #: [id number] THIS REPORT FOR: //name// CC: Liam Prieto DATE OF SERVICE: 01/14/2018 PROGRESS NOTE/OVERALL PLAN OF CARE: SUBJECTIVE: The patient was seen back today in followup. OBJECTIVE: GENERAL: He was in no distress. VITAL SIGNS: Temperature 98, pulse 69, respirations 20, blood pressure 122/67. NEUROLOGIC: No calf swelling. He is contact guard for sit to stand. Gait is min assist 250 feet with a standard cane. Lower body dressing, contact guard for socks and hose. He has mild to moderate comprehensive deficits, moderate to severe memory, moderate to severe cognition. ASSESSMENT: 1. Pulmonary rehabilitation. 2. Acute on chronic respiratory failure. 3. Chronic obstructive pulmonary disease exacerbation. 4. Medical complexity with generalized debilitation. 5. Severe multilevel spinal stenosis with radiculopathy and lower extremity weakness bilaterally. 6. History of prior cerebrovascular accident in 2012. 7. Diabetes mellitus type 2. 8. Anemia. 9. Chronic pain syndrome with chronic narcotic use. 10. Gastroparesis. PLAN: 1. The overall plan of care is based on the preadmission screen, post-admission physician evaluation and information garnered from therapy assessments. 2. Estimated length of stay is probably at least 7-10 days and likely longer as needed. 3. Medical prognosis is reasonably good. 4. Anticipated interventions includes the interdisciplinary acute inpatient rehabilitation program with PT, OT and speech, rehabilitation nursing assisting regarding medication management, skin care prophylaxis, bowel and bladder issues and nursing education. Case management will be involved as well as the interdisciplinary acute inpatient rehabilitation team. We will have the technical services consultant physicians continue to follow. 5. Anticipated functional outcomes would be for the patient to become modified [address] [address] REHAB UNIT PLAN OF CARE Name: OMARI RUSSO Room #: 505-P [facility] IN .R.#: [id number] Admission: 01/12/18 Attend Phys: Liam Simons MD Discharge: Date of : 43 Report #: [id number] independent with transfers, mobility, ADLs, cognition and communication so that he can hopefully return back to the home setting. Goal would be independence at a walker versus cane level. 6. Discharge destination would be back to the home setting where he lives in a house. He has a son and two grandsons that are involved. 7. Expected therapy, but this will includes PT, OT and speech 1 hour per day each five days a week throughout the duration of the acute inpatient rehabilitation stay. <ELECTRONICALLY SIGNED> By: Liam Simons MD 01/21/18 1319 0840 0858 Liam Simons MD /annette
--- NOTE | ~2018-01-12 | H ---
[facility] [place] [address] HISTORY AND PHYSICAL Name: OMARI RUSSO Room #: 505-P ADM IN M.R.#: [id number] Admission: 01/12/18 Attend Phys: Liam Simons MD Discharge: Date of : 43 Report #: [id number] THIS REPORT FOR: //name// CC: Liam Prieto DATE OF SERVICE: 01/12/2018 POST ADMISSION PHYSICIAN EVALUATION HISTORY OF PRESENT ILLNESS: The patient was originally admitted to [facility] on 01/07/2018 with hypoxia, increased shortness of breath, diagnosed with [id number] hypoxic respiratory failure with acute exacerbation of chronic obstructive pulmonary disease. He was started on oral steroids and nebulizers and is requiring 24/7 oxygen. He is deconditioned from a respiratory standpoint. He is a premorbid single point cane ambulator. He did have one recent fall at home where he tripped over his dog. He also has a prior history of chronic low back pain with some radiation down bilateral lower extremities. He is noted to have severe multilevel spinal stenosis with radiculopathy and has had epidural injections in the past. He has required chronic narcotic usage at home. With his acute on chronic respiratory failure and acute exacerbation of COPD and generalized weakness and decreased functional abilities, he has been admitted now for acute in-hospital inpatient rehabilitation. Please see the history and from Brittney Sandoval regarding past medical history, habits, allergies, social history. MEDICATIONS: Please see the full medication listing. This includes vitamins, herbals, and supplements. SOCIAL HISTORY: He does live in a house alone, does have 12 steps down to the basement and laundry. He was independent with ADLs and was still driving. Noted to use a cane as noted above. REVIEW OF SYSTEMS: No current complaints of chest pain. He does have some shortness of breath with increased activity. No abdominal pain. He has the chronic back pain as noted above. PHYSICAL EXAMINATION: GENERAL: He is a pleasant, overweight white male in no obvious distress. VITAL SIGNS: Temperature 98, pulse 68, respirations 20, blood pressure 152/80. Alert. HEENT: Appeared to be benign. Cranial nerves are grossly intact. He is on nasal prong O2. CHEST: Sounded clear to auscultation. CARDIOVASCULAR: Regular rate and rhythm. ABDOMEN: Bowel sounds positive, nontender. [facility] [address] [place] [address] HISTORY AND PHYSICAL Name: OMARI RUSSO Room #: 505-P [facility] IN M.R.#: [id number] Admission: 01/12/18 Attend Phys: Liam Simons MD Discharge: Date of : 43 Report #: [id number] GENITOURINARY AND RECTAL: Deferred. BACK: No CVA tenderness. EXTREMITIES: Functional range of motion of both upper and lower extremities. Strength is a grade 3+ to 4-/5. DTRs are trace to 1. He is standby assistance to min assist for sit to stand and short distance ambulation with a cane. He is on the oxygen. ASSESSMENT: 1. Pulmonary rehabilitation. 2. Acute on chronic respiratory failure. 3. Chronic obstructive pulmonary disease exacerbation. 4. Medical complexity with generalized debilitation. 5. Severe multilevel spinal stenosis with radiculopathy and lower extremity weakness, bilateral. 6. History of a prior CVA in 2012. 7. Type 2 diabetes mellitus. 8. Anemia. 9. Chronic pain syndrome with chronic narcotic use. 10. Gastroparesis. PLAN: The patient is admitted for acute in-hospital inpatient rehabilitation. From a postadmission physician evaluation perspective, there are no relevant changes since the preadmission screening. Please see the above review of prior and current medical and functional conditions and comorbidities. Please see the patient's previous and current functional status. As far as risk of complications, the patient has multiple medical comorbidities as noted above. The initial plan of care involves the interdisciplinary acute inpatient rehabilitation program with the goal of maximizing his functional independence, so he can hopefully return back to his prior living situation. Measurable functional goals would be for the patient to become modified independent with transfers, mobility, ADLs, so that he can hopefully return back to his prior living situation. Prognosis is reasonably good with estimated length of stay 7-10 days or potentially longer if warranted. Potential barriers would include his above medical comorbidities and decreased functional status. The patient meets diagnostic criteria for an acute in-hospital inpatient rehabilitation stay. He meets the medical necessity criteria and we will have the publicity consultant physicians continue to follow. He has had a significant worsening of his pulmonary condition from his premorbid status and is at a decreased functional level from premorbidly. He does have the tolerance for an [address] [address] HISTORY AND PHYSICAL Name: OMARI RUSSO Room #: 505-P [facility] IN M.R.#: [id number] Admission: 01/12/18 Attend Phys: Liam Simons MD Discharge: Date of : 43 Report #: [id number] acute in-hospital inpatient rehabilitation therapy program and has appropriate discharge goals back to the home setting. <ELECTRONICALLY SIGNED> By: Liam Simons MD 01/21/18 1319 1625 1704 Liam Simons MD /nt
--- NOTE | ~2018-01-12 | HC ---
[facility] [place] [address] [place] [address] CONSULTATION Name: OMARI RUSSO Room #: 505-P [facility] IN M.R.#: [id number] Admission: 01/12/18 Attend Phys: Liam Simons MD Discharge: Date of : 43 Report #: [id number] THIS REPORT FOR: //name// CC: Liam Prieto DATE OF SERVICE: 01/17/2018 NEUROBEHAVIORAL STATUS EXAM: ATTENDING PHYSICIAN: Liam Simosn MD. HYDROELECTRIC PLANT OPERATOR: Yvan Mcintosh, PhD. CLINICAL PRESENTATION: The patient is a 72-year-old male admitted to the [facility] for a comprehensive inpatient rehabilitation program to improve functional mobility, activities of daily living and self-care and mental status secondary to deficits from chronic hypoxic respiratory failure and exacerbation of COPD. His diagnoses on admission included medical complexity with generalized debility, severe multilevel spinal stenosis with radiculopathy and lower extremity weakness, acute on chronic hypoxic respiratory failure, acute exacerbation of COPD, now resolved, history of CVA in 2012, type 2 diabetes mellitus, anemia, dementia, chronic pain syndrome with chronic narcotic use and gastroparesis. A complete description of his medical condition and history can be found in his medical record. Neuropsychological consultation was requested to provide assistance in the assessment of cognitive and emotional status and to provide recommendations and services. Prior to this most recent admission, he is reported to have been living independently in his own home. He is reported to have been independent with instrumental activities of daily living and driving. The patient is . He is a [place] . 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 He had 2 children. One child about 5 years ago. The patient reportedly had a stroke about 4-5 years ago. He had been having several family members that were living with him until several months ago at which time they had moved out and he has been living by himself. He has a supportive son that was present during the interview. The patient is a high school graduate. TECHNIQUES UTILIZED: Clinical interview, review of medical records, staff consultation and behavioral observation, mini mental status exam 2 standard version and category fluency -- animals and family interview -- son. EXAMINATION FINDINGS: The patient was alert and oriented during the assessment. He does not report auditory or visual hallucinations. Difficulty with verbal expression is noted. Verbal speech was somewhat slow and dysarthric. [facility] [address] [place] [address] CONSULTATION Name: OMARI RUSSO Room #: 505-P [facility] IN M.R.#: [id number] Admission: 01/12/18 Attend Phys: Liam Simons MD Discharge: Date of : 43 Report #: [id number] substitution was noted during the assessment. His speech appears dysarthric and slower and possibly the result with sedation from narcotic medication contributing. The patient does not report symptoms of cognitive disorder. However, his son has noted that with increased pain, memory appears to be affected. Sleep, appetite and smell are reported as poor. Increased isolation in the home maybe contributing to a depressed mood. His performance on the MMSE 2 brief version was in the mild range of impairment with a raw score of 13 and a T score of 36. The patient was 3/3 for initial registration, 4/5 for orientation to time, 5/[address] and 1/3 for immediate recall of 3 items after a brief time delay and distraction. Moderate impairment is noted on the MMSE 2 standard version with a raw score 22/30 and a T score of 30 and percentile rank of 2. He was 1/5 for serial sevens, 2/2 for naming, 1/1 for repetition, 3/3 for comprehension, 1/1 for reading and 1/1 for writing a single sentence. The patient was unable to accurately copy a simple geometric design. Copying was severely impaired. Category fluency was a raw score of 3, which is in the severe range of impairment. The patient is presenting with variability in memory, deficits in visual spatial organization and construction along with concentration and attention. Mood is mildly depressed. The use of narcotic medication and chronic pain may be influencing his overall level of functioning. DIAGNOSTIC IMPRESSION: Major neurocognitive disorder (dementia), unspecified -- with diminished insight, extent to be determined. Unspecified depressive disorder. RECOMMENDATIONS: Reduce as appropriate medication with sedating features, example, tizanidine, oxycodone and methadone. Gabapentin can also affect cognitive function. Continue treatment for depression with the use of sertraline. A followup neuropsych assessment after discharge may help clarify the severity of cognitive deficits. At this time, the patient will require assistance in the management of medication along with planning and problem solving to maintain safety. Driving should be discontinued until a more thorough assessment is completed. [facility] [address] [place] [address] CONSULTATION Name: OMARI RUSSO Room #: 505-P [facility] IN M.R.#: [id number] Admission: 01/12/18 Attend Phys: Liam Simons MD Discharge: Date of : 41 Report #: [id number] Thank you very much for allowing me to provide the consultation on this patient. <ELECTRONICALLY SIGNED> By: Yvan Mcintosh, PhD 01/18/18 2226 1455 0533 Yvan Mcintosh, PhD /nt
[~2018-01-12 14:46] MED LIST changes: +B-12500 MCG PO; +FOLIC ACID 40400 MC1 PO; +LANTUS100 UNIT/M SUBQ
[2018-01-12 18:15] VITALS: BP 141/63
[2018-01-12 19:20] VITALS: BP 141/63
[2018-01-13 04:28] LABS: CALCIUM 8.4 mg/dL (8.5-10.1); CREATININE 0.9 mg/dL (0.7-1.3); POTASSIUM 3.9 mmol/L (3.5-5.1)
[2018-01-13 04:29] LABS: HEMATOCRIT 28.5 % (42.0-52.0); HEMOGLOBIN 9.4 gm/dL (14.0-18.0); MCH 30.2 pg (26.0-34.0); MCHC 33.1 g/dL (28.0-37.0); RBC 3.13 mil/uL (4.50-6.00); RDW 20.7 % (10.5-14.5); WBC 9.3 thou/uL (4.0-11.0)
[2018-01-13 07:30] VITALS: BP 152/80
[2018-01-13 19:15] VITALS: BP 122/67
[2018-01-14 07:20] VITALS: BP 126/64
[2018-01-14 19:40] VITALS: BP 133/65
[2018-01-15 09:09] VITALS: BP 126/57
[2018-01-15 19:30] VITALS: BP 122/64
[2018-01-16 07:30] VITALS: BP 133/65
[2018-01-16 13:17] VITALS: BP 133/65
[2018-01-16 19:00] VITALS: BP 127/49
[2018-01-17 19:32] VITALS: BP 126/69
[2018-01-18 07:15] VITALS: BP 136/58
[2018-01-18 19:10] VITALS: BP 126/71
[2018-01-19 07:30] VITALS: BP 140/64
[2018-01-19 19:10] VITALS: BP 138/66
[2018-01-20 04:10] LABS: CALCIUM 8.3 mg/dL (8.5-10.1); CREATININE 0.9 mg/dL (0.7-1.3); MAGNESIUM 2.1 mg/dL (1.8-2.4); POTASSIUM 3.9 mmol/L (3.5-5.1)
[2018-01-20 04:17] LABS: HEMATOCRIT 26.9 % (42.0-52.0); HEMOGLOBIN 8.7 gm/dL (14.0-18.0); MCH 29.6 pg (26.0-34.0); MCHC 32.3 g/dL (28.0-37.0); MCV 91.6 fL (80.0-100.0); PLATELET COUNT 179 thou/uL (150-400); RBC 2.94 mil/uL (4.50-6.00); RDW 20.6 % (10.5-14.5); WBC 6.9 thou/uL (4.0-11.0)
[2018-01-20 05:20] LABS: ABSOLUTE NEUTROPHILS 5.2 thou/uL (1.4-8.2); ANISOCYTOSIS 2+; TOXIC GRANULATION 2+
[2018-01-20 05:21] LABS: LARGE PLATELETS SEVERAL; OVALOCYTES 1+
[2018-01-20 07:21] VITALS: BP 129/50
[2018-01-20 19:00] VITALS: BP 126/63
[2018-01-21 07:20] VITALS: BP 126/49
[2018-01-21 20:50] VITALS: BP 125/78
[2018-01-22 07:25] VITALS: BP 124/65
[2018-01-22] MEDS ORDERED: MIRALAX17 GM PO (13:37)
[2018-01-22] MEDS ORDERED: LANTUS100 UNIT/M SUBQ (13:37)
[2018-01-22] MEDS ORDERED: NOVOLOG100 UNIT/1 SUBQ (13:37)
[2018-01-22] MEDS ORDERED: IPRAT-ALBUT 0.5-3 ML INH (13:37)
[2018-01-22] MEDS ORDERED: COLACE100 MG PO (13:37)
[2018-01-22 20:10] VITALS: BP 124/62
[2018-01-23] MEDS ORDERED: METHADONE HCL 110 MG PO (05:32)
[2018-01-23 07:30] VITALS: BP 148/79
[2018-01-23 09:28] VITALS: BP 148/79
== END 2018-01-23 15:32 | DRG 189 ==
PROVIDERS: Nurse Practitioner; Nurse Practitioner Family
DX: J96.21 Acute and chronic respiratory failure with hypoxia (principal); J44.1 Chronic obstructive pulmonary disease with (acute) exacerbation; R53.81 Other malaise; M54.10 Radiculopathy, site unspecified; K31.84 Gastroparesis; E11.43 Type 2 diabetes mellitus with diabetic autonomic (poly)neuropathy; Z60.2 Problems related to living alone; D64.9 Anemia, unspecified; F03.90 Unspecified dementia, unspecified severity, without behavioral disturbance, psychotic disturbance, mood disturbance, and anxiety; G89.4 Chronic pain syndrome; F01.50 Vascular dementia, unspecified severity, without behavioral disturbance, psychotic disturbance, mood disturbance, and anxiety; F32.9 Major depressive disorder, single episode, unspecified; Z98.41 Cataract extraction status, right eye; Z98.42 Cataract extraction status, left eye; Z86.73 Personal history of transient ischemic attack (TIA), and cerebral infarction without residual deficits; Z79.891 Long term (current) use of opiate analgesic; Z90.49 Acquired absence of other specified parts of digestive tract; Z79.899 Other long term (current) drug therapy; Z88.6 Allergy status to analgesic agent; Z88.8 Allergy status to other drugs, medicaments and biological substances; Z88.2 Allergy status to sulfonamides; Z91.011 Allergy to milk products; Z88.1 Allergy status to other antibiotic agents
CPT/HCPCS: 10112

== ENCOUNTER 2018-01-31 06:27 | Inpatient (IN) | payer OTHER ==
[~2018-01-31] VITALS: Ht 170.2 cm; Wt 107.4 kg
[2018-01-31] VITALS (13 sets, daily range): BP systolic 107–189; BP diastolic 59–94
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
--- NOTE | ~2018-01-31 | H ---
[facility] [place] [address] [place] [address] HISTORY AND PHYSICAL Name: OMARI RUSSO Room #: 237-P ADM IN M.R.#: [id number] Admission: 01/31/18 Attend Phys: Anu Pandya MD Discharge: Date of : 43 Report #: [id number] THIS REPORT FOR: //name// CC: Anu Garcia REASON FOR PRESENTATION: Shortness of breath. HISTORY OF PRESENT ILLNESS: I am not really sure how accurate is this history as the patient seems to be demented. He was recently discharged from the hospital after being in the rehabilitation floor for some time. He presented to the hospital complaining of shortness of breath. Currently, the patient is known to have ongoing COPD, chronic pain syndrome, traumatic brain injury, status post dementia. He stays in a nursing facility. He presented to the Emergency Room having some shortness of breath. O2 sats were in the low 70. He is utilizing oxygen while at the nursing facility. He denies any chest pain. No cough. No fever or chills. He denies any previous cardiac problems. He did have what seems to be bilateral lower extremity edema. On presentation to the Emergency Room, the patient was found to be in acute hypercapnic respiratory failure. Chest x-ray was consistent with fluid overload. Last echo was in 2012. Because of the above-mentioned, he will be admitted to further evaluate and manage. PAST MEDICAL HISTORY: Extensive and includes the followin. Traumatic brain injury with resultant dementia. 2. Remote history of stroke. 3. Chronic pain syndrome. 4. Hypertension. 5. Hyperlipidemia. 6. Restrictive lung disease. 7. Hypothyroidism. 8. Dyslipidemia. 9. Diabetes mellitus. 10. History of gastroparesis. 11. Depression. 12. Osteoarthritis. 13. Coronary artery disease with 40% to 50% right coronary artery region for an angiogram done in 2006. 14. Chronic O2 dependent. 15. Pleural plaques with asbestosis. 16. Obstructive sleep apnea. 17. Restless leg syndrome. 18. Osteopenia. SOCIAL HISTORY: He resides in a nursing facility. MEDICATIONS: Listed amongst his medications: [facility] [address] [place] [address] HISTORY AND PHYSICAL Name: OMARI RUSSO RAVI Room #: 237-P [facility] IN ..#: [id number] Admission: 01/31/18 Attend Phys: Anu Pandya MD Discharge: Date of : 43 Report #: [id number] 1. Plavix. 2. Amlodipine. 3. Methadone. 4. Gabapentin. 5. Metoprolol. 6. Lantus. 7. [place] 3 fatty acids. 8. Folic acid. 9. Zofran. REVIEW OF SYSTEMS: GENERAL: He denies fever or chills. CARDIOVASCULAR: As per the history of present illness. PULMONARY: As per the history of present illness. GENITOURINARY: No frequency, no urgency. GASTROINTESTINAL: No nausea or vomiting. SKIN: No rash or ulcerations. HEMATOLOGIC: No easy bruisability. No epistaxis. LYMPHATIC: No lymph node swelling. FAMILY HISTORY: He tells me that his dad has high blood pressure. PHYSICAL EXAMINATION: GENERAL: The patient was alert, oriented. O2 was 100% on 6 liters. VITAL SIGNS: Blood pressure initially reported to be 140/60. HEAD AND NECK: Elevated jugular venous pressure. CHEST: Decreased air entry bilaterally, with crackles. CARDIOVASCULAR: No rub detected. ABDOMEN: Soft, nontender, with no hepatosplenomegaly. LOWER EXTREMITIES: With +3 edema. NEUROLOGIC: No gross deficit. He is alert, awake. SKIN: No rash or ulcerations. LYMPHATIC AND HEMATOLOGIC SYSTEM: No lymphadenopathy. LABORATORY DATA: Laboratory values reviewed. Hemoglobin 9.2. Blood gas with a pH of 7.3, pCO2 of 64. Sodium 141, potassium 3.9, BUN is 18 and creatinine is 0.9. IMAGING: Chest x-ray, bilateral interstitial infiltrates. ASSESSMENT, IMPRESSION AND PLAN: 1. Acute hypercapnic respiratory failure. 2. Dementia. 3. Hypertension. 4. Diabetes mellitus. 5. Traumatic brain injury with resultant dementia. [address] [address] HISTORY AND PHYSICAL Name: OMARI RUSSO KEY LARGO Room #: [address] [place] [address] IN M.R.#: [id number] Admission: 01/31/18 Attend Phys: Anu Pandya MD Discharge: Date of : 43 Report #: [id number] 6. Transient ischemic attack. 7. Obstructive sleep apnea. 8. History of asbestosis. 9. Admission. 10. CPAP for his hypercapnic respiratory failure. 11. IV diuresis. 12. Resume blood pressure medication. 13. Salt and fluid restrictions. 14. Obtain cardiac echo. 15. Strict input and output. 16. He definitely had some issues with polypharmacy and will consult the cook roast team to manage his medications. 17. IV steroids. 18. Routine pulmonary toilet program. 19. Routine DVT and GI prophylaxis. <ELECTRONICALLY SIGNED> By: Anu Pandya MD 02/01/18 1636 0850 1001 Anu Pandya MD /nt
--- NOTE | ~2018-01-31 | 2DMMODE ---
[facility] [address] [place] [address] 2 D/M-MODE ECHOCARDIOGRAM Name: OMARI RUSSO RAVI Room #: 237-P ADM IN M.R.#: [id number] Admission: 01/31/18 Attend Phys: Anu Pandya, Discharge: Date of : 41 Date of Service: 02/02/18 0924 Report #: [id number] THIS REPORT FOR: //name// APPROVED REPORT Study performed: 02/02/2018 08:19:48 EXAM: Comprehensive 2D, Doppler, and color-flow Echocardiogram Patient Location: ICU Room #: Counts include 234 beds at the [facility] Status: routine BSA: 2.57 HR: 60 bpm BP: 110/74 mmHg Other Information Study Quality: Technically Difficult Technically limited study due to body habitus, inability to position patient. Indications COPD Diabetes Hypertension/HDD SOA Echo Enhancing Agent Indication: Endocardial border delineation Agent(s) / Amount(s) Used: Optison 4 cc 2D Dimensions RVDd: 36.64 mm IVSd: 14.30 (7-11mm) LVOT Diam: 20.84 (18-24mm) LVDd: 41.27 mm PWd: 14.78 (7-11mm) LVDs: 28.05 (25-40mm) Aortic Root: 33.82 mm IVC: 25.00 mm Volumes Left Atrial Volume (Systole) Single Plane 4CH: 71.36 mL Single Plane 2CH: 44.25 mL LA ESV Index: 23.00 mL/m2 Aortic Valve AoV Peak Mahin.: 0.88 m/s [facility] [address] [address] 2 D/M-MODE ECHOCARDIOGRAM Name: KARANOMARI RODRIGUES Room #: 237-P [facility] IN ..#: [id number] Admission: 01/31/18 Attend Phys: Anu Pandya, Discharge: Date of : 41 Date of Service: 02/02/18 0924 Report #: [id number] AO Peak Gr.: 3.08 mmHg LVOT Max P.78 mmHg LVOT Max V: 0.67 m/s GUMARO Vmax: 2.59 cm2 Mitral Valve E/A Ratio: 1.6 MV Decel. Time: 171.42 ms MV E Max Mahin.: 0.97 m/s MV A Mahin.: 0.59 m/s MV PHT: 49.71 ms IVRT: 145.33 ms Pulmonary Valve PV Peak Mahin.: 0.67 m/s PV Peak Gr.: 1.81 mmHg Tricuspid Valve TR Peak Mahin.: 2.42 m/s RAP Estimate: 15.00 mmHg TR Peak Gr.: 23.51 mmHg PA Pressure: 39.00 mmHg Left Ventricle The left ventricle is normal size. There is normal LV segmental wall motion. There is normal left ventricular wall thickness. The left ventricular systolic function is normal. The left ventricular ejection fraction is within the normal range. LVEF is 55-60%. The left ventricular diastolic function is normal. Right Ventricle The right ventricle is normal size. The right ventricular systolic function is normal. Atria The left atrium size is normal. The right atrium size is normal. Aortic Valve The aortic valve is not well visualized. No aortic regurgitation is present. There is no aortic valvular stenosis. Mitral Valve The mitral valve is normal in structure. Moderate mitral regurgitation. No evidence of mitral valve stenosis. Tricuspid Valve The tricuspid valve is normal in structure. Trace to mild tricuspid regurgitation. PAP is estimated at 39 mmHg. [facility] [address] [place] [address] 2 D/M-MODE ECHOCARDIOGRAM Name: OMARI RUSSO Room #: 237-P [facility] IN M.R.#: [id number] Admission: 01/31/18 Attend Phys: Anu Pandya, Discharge: Date of : 41 Date of Service: 02/02/18 0924 Report #: [id number] Pulmonic Valve Pulmonic valve is not well visualized. Great Vessels The aortic root is normal in size. IVC is dilated and collapses <50% with inspiration. Pericardium There is no pericardial effusion. <Conclusion> Technically difficult study The left ventricular systolic function is normal. There is normal LV segmental wall motion. LVEF 55-60%. The left ventricular diastolic function is normal. The aortic valve is not well visualized. No aortic valvular stenosis or insufficiency The mitral valve is normal in structure. Moderate mitral regurgitation. Trace to mild tricuspid regurgitation. Pulmonary artery pressure estimated at 39 mmHg. There is no pericardial effusion. <ELECTRONICALLY SIGNED> By: Edenilson Marcus MD, FACC 02/02/18923 3 3 Edenilson Marcus MD, FACC /INF
--- NOTE | ~2018-01-31 | EKG ---
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: [id number] : 1945 Requested By: Jorge Luis Liu Order Number: [id number] MD: Edenilson Marcus Measurements Intervals [place] Rate: 86 P: 38 PA: 171 QRS: -12 QRSD: 82 T: QT: 503 QTc: 602 Interpretive Statements Sinus rhythm Low voltage, precordial leads Nonspecific T wave abnormality Prolonged QT interval Baseline wander in lead(s) V6 Compared to ECG 01/07/2018 02:45:31 Low QRS voltage now present T-wave abnormality now present Prolonged QT interval now present Poor R-wave progression no longer present Electronically Signed On 01-31-2018 10:46:22 [employer]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
[~2018-01-31 06:27] MED LIST changes: +IPRAT-ALBUT 0.5-3 ML INH; +MIRALAX17 GM PO; +NOVOLOG100 UNIT/1 SUBQ
[2018-01-31 06:46] LABS: HEMATOCRIT 27.9 % (42.0-52.0); HEMOGLOBIN 9.2 gm/dL (14.0-18.0); MCH 30.8 pg (26.0-34.0); MCV 93.2 fL (80.0-100.0); PLATELET COUNT 238 thou/uL (150-400); RBC 2.99 mil/uL (4.50-6.00); RDW 22.2 % (10.5-14.5)
[2018-01-31] MEDS ORDERED: NITROGLYCERIN0.4 MG (06:46)
[2018-01-31] MEDS ORDERED: NAMENDA 10 MG T10 MG PO (06:47)
[2018-01-31] MEDS ORDERED: ALBUTEROL INH (06:51)
[2018-01-31] MEDS ORDERED: IPRATROPIUM INH (06:51)
[2018-01-31] MEDS ORDERED: COLACE100 MG PO (06:52)
[2018-01-31] MEDS ORDERED: MIRALAX17 GM (06:53)
[2018-01-31 06:55] LABS: ANION GAP 4 mmol/L (7-16); BUN 18 mg/dL (7-18); CALCIUM 8.9 mg/dL (8.5-10.1); CHLORIDE 103 mmol/L (98-107); CO2 34 mmol/L (21-32); CREATININE 0.9 mg/dL (0.7-1.3); GLUCOSE 184 mg/dL (74-106); POTASSIUM 3.9 mmol/L (3.5-5.1); SODIUM 141 mmol/L (136-145)
[2018-01-31 07:03] LABS: ALBUMIN 3.5 g/dL (3.4-5.0); APTT 26.6 Seconds (24.5-32.8); INR 1.1; MAGNESIUM 2.1 mg/dL (1.8-2.4); PROTIME 11.6 Seconds (9.3-11.4); SGOT 24 U/L (15-37); SGPT 29 U/L (30-65); TOTAL BILIRUBIN 0.7 mg/dL (<0.1-1.0); TOTAL PROTEIN 7.9 g/dL (6.4-8.2); TROPONIN-I <0.06 ng/mL (<0.06)
[2018-01-31 07:32] LABS: ABSOLUTE NEUTROPHILS 6.5 thou/uL (1.4-8.2); ATYPICAL LYMPHS 2 %
[2018-01-31 07:33] LABS: ANISOCYTOSIS 2+; LARGE PLATELETS FEW; POLYCHROMASIA SLIGHT
[2018-01-31 07:36] LABS: BE(vivo) 5.9 mmol/L (-2 to +3); HCO3 33.1 mmol/L (22.0-26.0); PCO2 64.4 mmHg (35.0-45.0); PO2 95.3 mmHg (80.0-100.0); pH 7.329 (7.360-7.450); sO2 96.6 % (92.0-98.0)
[2018-01-31 13:52] LABS: BE(vivo) 4.8 mmol/L (-2 to +3); HCO3 32.9 mmol/L (22.0-26.0); PO2 99.6 mmHg (80.0-100.0); sO2 96.6 % (92.0-98.0)
[2018-01-31 13:53] LABS: PCO2 70.4 mmHg (35.0-45.0); pH 7.287 (7.360-7.450)
[2018-01-31 18:11] LABS: BE(vivo) 7.2 mmol/L (-2 to +3); PCO2 62.2 mmHg (35.0-45.0); PO2 74.4 mmHg (80.0-100.0); pH 7.356 (7.360-7.450); sO2 93.9 % (92.0-98.0)
[2018-02-01] VITALS (42 sets, daily range): BP systolic 115–159; BP diastolic 60–88
[2018-02-01 03:50] LABS: HEMATOCRIT 28.3 % (42.0-52.0); HEMOGLOBIN 9.2 gm/dL (14.0-18.0); MCH 30.4 pg (26.0-34.0); MCHC 32.5 g/dL (28.0-37.0); MCV 93.6 fL (80.0-100.0); RBC 3.03 mil/uL (4.50-6.00); RDW 21.7 % (10.5-14.5); WBC 8.8 thou/uL (4.0-11.0)
[2018-02-01 04:07] LABS: ALBUMIN 3.2 g/dL (3.4-5.0); ANION GAP 5 mmol/L (7-16); BUN 23 mg/dL (7-18); CALCIUM 8.3 mg/dL (8.5-10.1); CHLORIDE 103 mmol/L (98-107); CO2 35 mmol/L (21-32); GLUCOSE 240 mg/dL (74-106); POTASSIUM 4.5 mmol/L (3.5-5.1); SGOT 21 U/L (15-37); SGPT 27 U/L (30-65); SODIUM 143 mmol/L (136-145); TOTAL BILIRUBIN 0.8 mg/dL (<0.1-1.0); TOTAL PROTEIN 7.3 g/dL (6.4-8.2); TROPONIN-I <0.06 ng/mL (<0.06)
[2018-02-01 05:50] LABS: BE(vivo) 8.2 mmol/L (-2 to +3); HCO3 34.6 mmol/L (22.0-26.0); PCO2 58.6 mmHg (35.0-45.0); pH 7.389 (7.360-7.450)
[2018-02-02] VITALS (33 sets, daily range): BP systolic 104–153; BP diastolic 56–91
[2018-02-02 04:42] LABS: HEMATOCRIT 29.7 % (42.0-52.0); HEMOGLOBIN 9.5 gm/dL (14.0-18.0); MCH 29.6 pg (26.0-34.0); MCHC 32.2 g/dL (28.0-37.0); MCV 92.2 fL (80.0-100.0); RBC 3.22 mil/uL (4.50-6.00); RDW 22.9 % (10.5-14.5); WBC 8.3 thou/uL (4.0-11.0)
[2018-02-02 04:53] LABS: ALBUMIN 3.3 g/dL (3.4-5.0); CALCIUM 8.4 mg/dL (8.5-10.1); CREATININE 1.2 mg/dL (0.7-1.3); INR 1.2; POTASSIUM 4.4 mmol/L (3.5-5.1); PROTIME 12.5 Seconds (9.3-11.4); TOTAL BILIRUBIN 0.7 mg/dL (<0.1-1.0)
[2018-02-02 05:24] LABS: BE(vivo) 6.6 mmol/L (-2 to +3); HCO3 31.6 mmol/L (22.0-26.0); PCO2 47.6 mmHg (35.0-45.0); PO2 78.9 mmHg (80.0-100.0); sO2 95.9 % (92.0-98.0)
[2018-02-02 21:24] LABS: URINE BILIRUBIN NEGATIVE (Negative); URINE BLOOD 2+ (Negative); URINE CLARITY SL CLOUDY; URINE COLOR YELLOW; URINE GLUCOSE-RANDOM* NEGATIVE (Negative); URINE KETONES NEGATIVE (Negative); URINE LEUKOCYTES-REFLEX NEGATIVE (Negative); URINE NITRITE-REFLEX NEGATIVE (Negative); URINE PROTEIN (DIPSTICK) TRACE (Negative)
[2018-02-02 21:33] LABS: BACTERIA-REFLEX 1-9 Few /HPF (None Seen); CASTS None Seen /LPF (None Seen); CRYSTALS None Seen /LPF (None Seen); SQUAMOUS 0-3 Few /LPF (0-3); URINE WBC-REFLEX 0-5 Rare /HPF (0-5)
[2018-02-03] VITALS (18 sets, daily range): BP systolic 125–169; BP diastolic 71–97
[2018-02-03 06:52] LABS: HEMATOCRIT 28.9 % (42.0-52.0); HEMOGLOBIN 9.5 gm/dL (14.0-18.0); MCH 30.3 pg (26.0-34.0); MCHC 32.9 g/dL (28.0-37.0); MCV 92.2 fL (80.0-100.0); RBC 3.13 mil/uL (4.50-6.00); RDW 22.3 % (10.5-14.5); WBC 7.6 thou/uL (4.0-11.0)
[2018-02-03 07:00] LABS: CALCIUM 8.5 mg/dL (8.5-10.1); CREATININE 1.2 mg/dL (0.7-1.3); POTASSIUM 3.9 mmol/L (3.5-5.1)
[2018-02-03 10:38] LABS: FOLIC ACID 16.8 ng/mL (8.6-58.9); TSH 3.213 uIU/mL (0.358-3.740)
[2018-02-03 16:16] LABS: % SATURATION 9 % (20-39); IRON 27 ug/dL (65-175); TIBC 296 ug/dL (250-450)
[2018-02-03 20:08] LABS: IgG 1234 mg/dL (700-1600)
[2018-02-03 21:09] LABS: GLYCOHEMOGLOBIN (HGB A1C) 6.8 % (4.8-5.6)
[2018-02-04] VITALS (30 sets, daily range): BP systolic 118–175; BP diastolic 67–97
[2018-02-04 00:07] LABS: HAV IgM AB (ANTI-HAV IgM) Negative (Negative); HEPATITIS B SURFACE AG Negative (Negative); HEPATITIS C VIRUS AB <0.1 (0.0-0.9)
[2018-02-04 04:09] LABS: ABSOLUTE NEUTROPHILS 7.1 thou/uL (1.4-8.2); BASOPHILS 0.5 % (0.0-2.0); EOSINOPHILS 0.1 % (0.0-3.0); HEMATOCRIT 29.4 % (42.0-52.0); HEMOGLOBIN 9.7 gm/dL (14.0-18.0); LYMPHOCYTES 7.9 % (24.0-44.0); MCH 30.1 pg (26.0-34.0); MCV 91.3 fL (80.0-100.0); MONOCYTES 8.8 % (1.0-8.0); PLATELET COUNT 292 thou/uL (150-400); POLYS 82.7 % (36.0-66.0); RBC 3.22 mil/uL (4.50-6.00); WBC 8.6 thou/uL (4.0-11.0)
[2018-02-04 04:13] LABS: CALCIUM 8.3 mg/dL (8.5-10.1); CREATININE 1.1 mg/dL (0.7-1.3); POTASSIUM 3.9 mmol/L (3.5-5.1)
[2018-02-04 16:10] LABS: CERULOPLASMIN 31.1 mg/dL (16.0-31.0)
[2018-02-05] VITALS (21 sets, daily range): BP systolic 106–165; BP diastolic 43–92
[2018-02-05 04:24] LABS: CALCIUM 8.7 mg/dL (8.5-10.1); CREATININE 1.1 mg/dL (0.7-1.3); POTASSIUM 3.7 mmol/L (3.5-5.1)
[2018-02-05 17:12] LABS: ANA INTERPRETATION Negative (Negative)
[2018-02-06] VITALS (22 sets, daily range): BP systolic 117–158; BP diastolic 55–86
[2018-02-06 04:55] LABS: HEMATOCRIT 32.5 % (42.0-52.0); HEMOGLOBIN 10.3 gm/dL (14.0-18.0); MCH 29.1 pg (26.0-34.0); MCHC 31.7 g/dL (28.0-37.0); MCV 91.8 fL (80.0-100.0); PLATELET COUNT 299 thou/uL (150-400); RBC 3.54 mil/uL (4.50-6.00); RDW 21.3 % (10.5-14.5); WBC 13.7 thou/uL (4.0-11.0)
[2018-02-06 05:11] LABS: CALCIUM 8.8 mg/dL (8.5-10.1); CREATININE 1.1 mg/dL (0.7-1.3); POTASSIUM 3.2 mmol/L (3.5-5.1)
[2018-02-06 05:25] LABS: ABSOLUTE NEUTROPHILS 11.8 thou/uL (1.4-8.2)
[2018-02-06 05:26] LABS: LARGE PLATELETS RARE; PLATELET ESTIMATE NORMAL
[2018-02-06 05:27] LABS: ANISOCYTOSIS 2+; OVALOCYTES FEW; POLYCHROMASIA SLIGHT; SCHISTOCYTES OCCASIONAL; TEARDROPS RARE
[2018-02-07] VITALS (18 sets, daily range): BP systolic 113–145; BP diastolic 53–80
[2018-02-07 05:21] LABS: HEMATOCRIT 32.8 % (42.0-52.0); HEMOGLOBIN 10.7 gm/dL (14.0-18.0); MCH 29.9 pg (26.0-34.0); MCHC 32.5 g/dL (28.0-37.0); MCV 92.1 fL (80.0-100.0); PLATELET COUNT 250 thou/uL (150-400); RBC 3.57 mil/uL (4.50-6.00); RDW 21.7 % (10.5-14.5); WBC 15.1 thou/uL (4.0-11.0)
[2018-02-07 05:29] LABS: CALCIUM 8.6 mg/dL (8.5-10.1); POTASSIUM 3.9 mmol/L (3.5-5.1)
[2018-02-07 09:10] LABS: ANISOCYTOSIS 1+; LARGE PLATELETS SEVERAL; SCHISTOCYTES OCCASIONAL
[2018-02-08] VITALS (26 sets, daily range): BP systolic 86–140; BP diastolic 44–91
[2018-02-08 07:29] LABS: HEMATOCRIT 31.9 % (42.0-52.0); HEMOGLOBIN 10.1 gm/dL (14.0-18.0); MCH 29.3 pg (26.0-34.0); MCHC 31.7 g/dL (28.0-37.0); MCV 92.4 fL (80.0-100.0); PLATELET COUNT 222 thou/uL (150-400); RBC 3.45 mil/uL (4.50-6.00); RDW 20.5 % (10.5-14.5); WBC 15.8 thou/uL (4.0-11.0)
[2018-02-08 07:41] LABS: CALCIUM 8.8 mg/dL (8.5-10.1); CREATININE 1.1 mg/dL (0.7-1.3); POTASSIUM 4.1 mmol/L (3.5-5.1)
[2018-02-08 09:16] LABS: ABSOLUTE NEUTROPHILS 14.5 thou/uL (1.4-8.2); ANISOCYTOSIS 1+; HYPOCHROMASIA SLIGHT; OVALOCYTES FEW; POIKILOCYTOSIS SLIGHT; TEARDROPS OCCASIONAL
[2018-02-09] VITALS (17 sets, daily range): BP systolic 96–140; BP diastolic 51–72
[2018-02-09 05:31] LABS: ABSOLUTE NEUTROPHILS 13.8 thou/uL (1.4-8.2); BASOPHILS 0.9 % (0.0-2.0); EOSINOPHILS 1.1 % (0.0-3.0); HEMATOCRIT 34.3 % (42.0-52.0); HEMOGLOBIN 10.8 gm/dL (14.0-18.0); LYMPHOCYTES 6.5 % (24.0-44.0); MCH 29.1 pg (26.0-34.0); MCHC 31.5 g/dL (28.0-37.0); MCV 92.2 fL (80.0-100.0); MONOCYTES 8.5 % (1.0-8.0); PLATELET COUNT 234 thou/uL (150-400); RBC 3.72 mil/uL (4.50-6.00); RDW 20.8 % (10.5-14.5); WBC 16.6 thou/uL (4.0-11.0)
[2018-02-09 05:50] LABS: CALCIUM 8.6 mg/dL (8.5-10.1); POTASSIUM 3.7 mmol/L (3.5-5.1)
[2018-02-10 03:39] VITALS: BP 121/55
[2018-02-10 03:40] VITALS: BP 152/86
[2018-02-10 07:25] VITALS: BP 127/73
[2018-02-10] MEDS ORDERED: COZAAR 25 MG TA25 M2 PO (10:22)
[2018-02-10] MEDS ORDERED: METHADONE HCL 110 MG PO (10:23)
[2018-02-10] MEDS ORDERED: TORSEMIDE20 MG PO (10:24)
[2018-02-10] MEDS ORDERED: AUGMENTIN 875-1 EACH PO (10:25)
[2018-02-10 13:59] VITALS: BP 98/57
== END 2018-02-10 17:37 | DRG 871 ==
LOC: ER 06:27 → ICU 07:53 → EROBS 07:53 → 3W 11:24 → ICU 15:47 → 4W 02-09 15:15
PROVIDERS: Emergency Medicine; Hospitalist; Internal Medicine Pulmonary Disease; Nurse Practitioner
PROC: 5A09357 Assistance with Respiratory Ventilation, Less than 24 Consecutive Hours, Continuous Positive Airway Pressure (ICD-10-PCS; principal; 2018-01-31)
PROC: 5A09357 Assistance with Respiratory Ventilation, Less than 24 Consecutive Hours, Continuous Positive Airway Pressure (ICD-10-PCS; 2018-02-01)
PROC: 5A09357 Assistance with Respiratory Ventilation, Less than 24 Consecutive Hours, Continuous Positive Airway Pressure (ICD-10-PCS; 2018-02-02)
PROC: 5A09357 Assistance with Respiratory Ventilation, Less than 24 Consecutive Hours, Continuous Positive Airway Pressure (ICD-10-PCS; 2018-02-04)
PROC: 5A09357 Assistance with Respiratory Ventilation, Less than 24 Consecutive Hours, Continuous Positive Airway Pressure (ICD-10-PCS; 2018-02-05)
DX: A41.9 Sepsis, unspecified organism (principal); G92 Toxic encephalopathy; J96.22 Acute and chronic respiratory failure with hypercapnia; J96.21 Acute and chronic respiratory failure with hypoxia; J18.9 Pneumonia, unspecified organism; I50.33 Acute on chronic diastolic (congestive) heart failure; J44.1 Chronic obstructive pulmonary disease with (acute) exacerbation; E87.2 Acidosis; R18.8 Other ascites; Z96.1 Presence of intraocular lens; D64.9 Anemia, unspecified; I25.10 Atherosclerotic heart disease of native coronary artery without angina pectoris; F03.90 Unspecified dementia, unspecified severity, without behavioral disturbance, psychotic disturbance, mood disturbance, and anxiety; K21.9 Gastro-esophageal reflux disease without esophagitis; M79.7 Fibromyalgia; F32.9 Major depressive disorder, single episode, unspecified; G25.81 Restless legs syndrome; N40.0 Benign prostatic hyperplasia without lower urinary tract symptoms; J92.0 Pleural plaque with presence of asbestos; E11.43 Type 2 diabetes mellitus with diabetic autonomic (poly)neuropathy; K31.84 Gastroparesis; E53.8 Deficiency of other specified B group vitamins; I11.0 Hypertensive heart disease with heart failure; I08.1 Rheumatic disorders of both mitral and tricuspid valves; E66.9 Obesity, unspecified; G47.33 Obstructive sleep apnea (adult) (pediatric); K75.81 Nonalcoholic steatohepatitis (NASH); E03.9 Hypothyroidism, unspecified; E87.6 Hypokalemia; K74.60 Unspecified cirrhosis of liver; M19.90 Unspecified osteoarthritis, unspecified site; Z99.81 Dependence on supplemental oxygen; Z68.37 Body mass index [BMI] 37.0-37.9, adult; Z87.820 Personal history of traumatic brain injury; Z87.828 Personal history of other (healed) physical injury and trauma; Z98.42 Cataract extraction status, left eye; Z98.41 Cataract extraction status, right eye; Z90.49 Acquired absence of other specified parts of digestive tract; Z79.02 Long term (current) use of antithrombotics/antiplatelets; Z79.4 Long term (current) use of insulin; Z79.899 Other long term (current) drug therapy; Z88.2 Allergy status to sulfonamides; Z88.8 Allergy status to other drugs, medicaments and biological substances; Z88.6 Allergy status to analgesic agent; Z78.1 Physical restraint status; Z88.1 Allergy status to other antibiotic agents; Z91.041 Radiographic dye allergy status; Z91.011 Allergy to milk products; Z82.49 Family history of ischemic heart disease and other diseases of the circulatory system; Z83.3 Family history of diabetes mellitus
CPT/HCPCS: 10045; 10078; 10203

== ENCOUNTER → 2018-02-23 | Outpatient (CLI) | payer OTHER ==
[~2018-02-23] MED LIST changes: +ALBUTEROL INH; +AUGMENTIN 875-1 EACH PO; +COZAAR 25 MG TA25 M2 PO; +IPRATROPIUM INH; +MIRALAX17 GM; +TORSEMIDE20 MG PO
--- NOTE | ~2018-02-23 | P ---
[facility] [place] [address] [place] [address] PROCEDURE REPORT Name: OMARI RUSSO [id number] Admission: 02/23/18 Attend Phys: Justino Garner MD Discharge: Date of : 43 Report #: [id number] THIS REPORT FOR: //name// CC: Tino Lynn MD [facility] Justino Garner BRIEF HISTORY: The patient is a 72-year-old male known to me with recurrent dysphagia. He was last dilated about 2 years ago. PREOPERATIVE DIAGNOSIS: Recurrent dysphagia and history of Schatzki ring. POSTOPERATIVE DIAGNOSES: 1. Nonbleeding duodenal ulcer. 2. Idphifqc-zr-qwqnjk diffuse gastritis. 3. Schatzki ring. MEDICATIONS: Deep sedation with propofol per anesthesia. SPECIMEN: Biopsies of gastritis. ESTIMATED BLOOD LOSS: 3 mL. PROCEDURE: EGD with biopsy, Flores dilation. FINDINGS: Prior to propofol sedation, the procedure of upper endoscopy and dilation was discussed with the patient as well as potential risks and its complications. He indicates he understands and desires to proceed. DESCRIPTION OF PROCEDURE: With the patient in the left lateral decubitus position, the Olympus video endoscope was inserted in the cervical esophagus under direct vision without difficulty. Examination of this organ through its entire length revealed normal esophageal mucosa down to the squamocolumnar junction. The patient has a known history of a Schatzki ring. I did not see an obvious ring today, but it is likely present, although not well visualized today. The GE junction was not tightly narrowed and the scope passed easily. Also there was no evidence of a hiatus hernia, esophagitis or Ontiveros esophagus. The scope was advanced in the stomach, was examined on end view as well as retroflexed views. There was a pattern of a diffuse gastritis with a few erosions in the antrum, but no ulcers were seen. Upon retroflexion, no mass lesions were seen. The pylorus, duodenal bulb and postbulbar sweep were all inspected. The pylorus was unremarkable. Within the duodenal bulb was about a 6-8 mm flat nonbleeding duodenal ulcer. It had a benign appearance. The duodenal papilla was identified and noted to be unremarkable. Third portion of the duodenum was unremarkable as far as we could examine. At that point, the scope was slowly withdrawn and careful circumferential views confirmed the above [address] [address] PROCEDURE REPORT Name: OMARI RUSSO Room #: REG CLNora Florez#: [id number] Admission: 02/23/18 Attend Phys: Justino Garner MD Discharge: Date of : 43 Report #: [id number] findings. The patient tolerated the procedure well. Biopsies were obtained of the gastritis. Subsequently, he was dilated with passage of 52-Japanese Flores dilator. There was no resistance. CONDITION OF THE PATIENT UPON DISCHARGE: Following procedure, the patient drowsy, arousable and conversant and will be discharged home when fully ambulatory. INSTRUCTIONS TO THE PATIENT AND FAMILY AT THE TIME OF DISCHARGE: We will follow up on the path with regard to H. pylori status and the duodenal ulcer. We will have him start omeprazole 20 mg daily, half hour before breakfast for 6 weeks. Thereafter, he may use on an as needed basis. However, the patient had no complaints. To the best of my knowledge, he is not on a nonsteroidal. However, we will discuss further with the patient. If he is on a nonsteroidal, long-term co-administration of PPI would be reasonable. He will return to the care of Dr. Tino Prieto and return to see me as needed. He may return on an as needed basis for dilation due to symptoms of dysphagia. <ELECTRONICALLY SIGNED> By: Justino Garner MD 02/24/18 1618 0906 2321 Justino Garner MD /nt
--- NOTE | ~2018-02-23 | PATH ---
[facility] [address] [place] [address] PATHOLOGY RPT PROCEDURE Name: CHAS ALVAREZ Room #: REG CLI M.R.#: [id number] Admission: 02/23/18 Date of : 41 Discharge: Report #: [id number] Path Case #: [id number] [facility] Accession Number: [id number] . 01 Material submitted: . BX OF ULCER IN DUODENUM . 01 Clinical history: . Pre-OP DX: Esophageal stricture Post-OP DX: Duodenal ulcer bleeding, gastritis, Schatzki's ring . 02 Diagnosis: Tissue designated as, "ulcer in duodenum", endoscopic biopsy: - Fragments of gastric-type mucosa showing features of reactive gastropathy and mild inflammation. - Negative for dysplasia or malignancy. . (IUV:mml; 02/24/18) QLM/02/24/2018 . 02 Comment: It is noted the fragments represent "ulcer in duodenum". Fragments are entirely comprised of gastric cardia-type mucosa as well as fundic-type mucosa. Occasional dilated fundic glands compatible with those of fundic gland polyps are present. 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 Fragments of active ulceration are not present. There is no dysplasia or malignancy present. Clinical correlation is suggested. . (IUV:mml; 02/24/18) . 02 Electronically signed: . Oralia Zaidi MD, Pathologist NPI- [id number] . 01 Gross description: . Received in formalin labeled "Chas Alvarez, BX of ulcer in duodenum," are 4 segments of robertson soft tissue measuring 0.9 x 0.7 x 0.2 cm in aggregate dimensions and ranging from 0.3 to 0.6 cm in maximum dimension. The specimen is submitted entirely in cassette A1. (TSD; 02/23/2018) TOB/TOB . 02 Pathologist provided ICD-10: K31.9 . 02 CPT . 199943 [address] [address] PATHOLOGY RPT PROCEDURE Name: CHAS ALVAREZ [id number] Admission: 02/23/18 Date of : 41 Discharge: Report #: [id number] Path Case #: [id number] Specimen Comment: A courtesy copy of this report has been sent to Specimen Comment: [phone], . Specimen Comment: Report sent to / DR FELIZ Performed at: [address], [place], [place] [id number] MD Blake Waldron MD Phone: [phone] Performed at: [address] [id number] MD Oralia Zaidi MD Phone: [phone]
== END | disposition home or self-care (01) ==
LOC: GI 07:19
DX: K29.70 Gastritis, unspecified, without bleeding (principal); K31.89 Other diseases of stomach and duodenum; K26.9 Duodenal ulcer, unspecified as acute or chronic, without hemorrhage or perforation; K22.2 Esophageal obstruction; J44.9 Chronic obstructive pulmonary disease, unspecified; E11.9 Type 2 diabetes mellitus without complications; I50.9 Heart failure, unspecified; J96.10 Chronic respiratory failure, unspecified whether with hypoxia or hypercapnia; Z88.2 Allergy status to sulfonamides; Z88.8 Allergy status to other drugs, medicaments and biological substances; Z91.041 Radiographic dye allergy status; Z79.899 Other long term (current) drug therapy; Z79.4 Long term (current) use of insulin
CPT/HCPCS: 62110; 62900

== ENCOUNTER → 2018-05-15 | Outpatient (CLI) | payer OTHER ==
[~2018-05-15] VITALS: Ht 170.2 cm; Wt 109.4 kg
[~2018-05-15] MED LIST changes: +PERCOCET 10-321 EAC1 PO
[2018-05-15 11:24] VITALS: BP 147/73
--- NOTE | 2018-05-15 11:30 | NUR ---
Pain Clinic Assessment: 1. History of Osteoarthritis: Left Lower Extremity Left Upper Extremity Right Lower Extremity Right Upper Extremity History of Rheumatoid Arthritis: Not Applicable 2. Height: 5 ft. 7 in. 170.2 cm. Weight: 241.2 lb. oz. 109.408 kg. Patient's BMI: 37.8 3. Vital Signs: BP: 147/73 Pulse: 82 Resp: 16 Temp: 02 Sat: 95 ECG Mon: 4. Pain Intensity: 6 5. Fall Risk: Dizziness: N Needs help standing or walking: N Fallen in the last 3 months: N Fall risk comments: 6. Patient on Blood Thinner: Clopidogrel Bisulf(Plavix 7. History of Hypertension: Y 8. Opioid Therapy greater than 6 weeks: Y Opiate Contract Signed: 10/30/15 9. Risk Assessment Tool Provided: 0 LOW RISK 10. Functional Assessment Tool: 11. Recreational Drug Use: Never Drug Type: Tobacco Use: Never Smoker Tobacco Type: Amount or Packs/day: How Many Years: Alcohol Use: No Frequency: Quant:
--- NOTE | 2018-05-18 14:04 | HPC ---
[facility] [place] [address] PAIN MANAGEMENT CONSULTATION Name: OMARI RUSSO [id number] Admission: 05/15/18 ������������������ Attend Phys: Danika Caban Discharge: ������������������ Date of : 41 Report #: [id number] THIS REPORT FOR: //name// CC: Danika Prieto DATE OF SERVICE: 05/15/2018 CHIEF COMPLAINT: Low back pain. HISTORY OF PRESENT ILLNESS: This is a 73-year-old gentleman that has been followed in the pain clinic in the past. We have not seen him since October. He has been in the hospital here at [facility] several times since then with multiple respiratory issues and has been in a rehab facility here as well as an outside rehab. He recently has been discharged and is now at home, living with a friend while his house has been rehabbed for use for handicap safe accessibility. The son is here present with the patient today, would like a medication refill of his methadone and his oxycodone, the medicines that he was on prior to all these hospitalizations. The patient currently is wearing oxygen at 3 liters and has a pulse ox with him at all times. The patient has his son here to help with his recent history since the patient does suffer some dementia issues. ALLERGIES: KEFLEX, AVELOX, CYMBALTA, SULFA, STATINS, IODINE, ASPIRIN, CLINDAMYCIN, ERYTHROMYCIN, CLONIDINE, MELOXICAM, ZETIA, LYRICA and MILK. CURRENT LIST OF MEDICATIONS: Percocet 10/325 t.i.d., methadone 5 mg daily, furosemide 40 mg daily, losartan 25 mg daily, MiraLax 17 grams b.i.d., nitro as needed, Lantus 5 units at bedtime, NovoLog sliding scale before meals, Colace b.i.d., folic acid 400 mcg daily, vitamin B12 500 mcg daily, gabapentin 300 mg t.i.d., Zoloft 100 mg daily, Namenda 10 mg b.i.d., Exelon patch 9.5 mg daily, Plavix 75 mg daily, Zofran 8 mg b.i.d. as needed, Lovaza 1000 mg b.i.d., Drisdol 5000 units weekly, amlodipine 10 mg daily as needed. PQRS: 1. Has a history of osteoarthritis in his upper and lower extremities. Denies rheumatoid arthritis. 2. Height is 5 feet 7 inches, weight is 241. BMI is 37.8. 3. Vital signs: 147/73, pulse is 82, respirations 16, oxygen sat is 95%. 4. Pain score 6/10. 5. Fall risk. He denies dizziness. He uses a cane for walking and has not fallen in the last 3 months. 6. The patient is on Plavix and does take hypertension medicines. 7. Opioid therapy is greater than 6 weeks; therefore, an opiate signed contract has been on the chart. 8. Risk assessment tool is low. His functional assessment is 20/70. 9. Recreational drug use. He denies. He is not a smoker and does not drink [address] [address] PAIN MANAGEMENT CONSULTATION Name: OMARI RUSSO Room #: REG CL Vikki#: [id number] Admission: 05/15/18 ������������������ Attend Phys: Danika Caban Discharge: ������������������ Date of : 43 Report #: [id number] alcohol. We did check the prescription monitoring system, the last fill of any of our medications was in January prior to any hospitalizations. He has been in the hospital and in rehab, so has not been feeling any medications. We will check a buccal drug screen on this patient today, unsure of all of the medication the patient is taking since we have no current medication list. PHYSICAL EXAMINATION: GENERAL: This is a well-developed, well-nourished 73-year-old female who appears his stated age. He is alert and orientated. Slightly obese. His affect is appropriate. His speech is fluent. He does have times of forgetting information. HEENT: Normocephalic, atraumatic. Extraocular eye muscles are intact. Mucous membranes are moist. CHEST: Complains of slight shortness of breath. Has diminished lung sounds. He is on oxygen currently at 3 liters with a continued pulse ox around his neck to check his respirations. EXTREMITIES: Upper extremity strength judged to be 5/5 for all major muscle groups. The patient is without his significant scoliosis, kyphosis or lordosis. The patient does complain of pain across his lower back that radiates down his bilateral legs to his knees. His lower extremity strength judged to be 4/5 in all major muscle groups. He uses his hands to move from sitting to standing position. IMPRESSION: 1. Chronic low back pain with pain radiating down L5-S1 distribution. He is insulin diabetic. 2. Osteoarthritis. 3. Coronary artery disease. 4. Chronic oxygen dependent. 5. Hypertension. 6. Hyperlipidemia. 7. Traumatic brain injury with resultant dementia. We reviewed the fact that opiate medications are being used to provide analgesia adequate to support activities of daily living, not attempting to achieve a specific pain score on the 0-10 Visual Analog Scale. The current opiate medications are providing sufficient analgesia to allow the patient to participate in activities of daily living. The patient is not exhibiting any aberrant behavior suggestive of drug diversion. The patient is not having any adverse reactions to medications. The patient is not suffering from daytime somnolence or mental acuity changes. The patient is managing opiate-induced constipation with appropriate zxet-jca-bfzfdez agents and dietary considerations. The patient was counseled on concern for caution with operating a motor vehicle while using opiate medications. [facility] [address] [place] [address] PAIN MANAGEMENT CONSULTATION Name: OMARI RUSSO Room #: REG CLI [facility]#: [id number] Admission: 05/15/18 ������������������ Attend Phys: Danika Caban Discharge: ������������������ Date of : 43 Report #: [id number] A physical exam was performed and the patient's functional status was evaluated. All patients with back pain were advised against the bed rest greater than 4 days and were advised to return to normal activities. Pain score assessment was noted and the treatment plan was reviewed with the patient. All current medications, both prescribed and OTC were reviewed and reconciled on the electronic medical record. Tobacco screening was accomplished and smoking cessation was advised when indicated. BMI was noted and diet/exercise modification was recommended for all patients following outside normal parameters. I reviewed with the patient today their responsibilities to safeguard prescription medications, reviewed their responsibility to utilize medications only as prescribed by the physician. They are to seek and receive pain medications only from 1 physician group ( [facility]). They are to use 1 pharmacy and keep the clinic informed if they change pharmacies. Their responsibilities include making followup visits in a timely fashion and to avoid abrupt discontinuation of medication usage. Their responsibilities further include bringing their medications (bottles from the pharmacy with residual pills) to the visit for possible confirmation of pill counts and the patient understands it is their responsibility to submit to random drug screens to ensure both that the medications prescribed are present, and that no other controlled substances are present. All prescriptions provided today were generated electronically. PLAN: 1. We discussed treatment options with the patient and his son today. The patient's family did not bring a current list of his medications. The patient tells me that he has been taking 3 Percocet 10/325 a day and he does take methadone on as needed basis. Son tells me that it is about once a day. I have no records of recent fills of that medication with his respiratory status of starting that medication again. The patient and family understand this. Dr. Smith also discussed this with the patient as well. It was decided based on his recent hospitalization with all of his pulmonary issues to only continue the patient on Percocet 10/325 up to 3 times a day, #90 will be given today. The patient instructed to take the lowest effective dose. If he is able to get by with 2 or 1 a day that would be better. The patient tells me he is trying to wean off his oxygen that we informed him that all narcotics do have respiratory depression side effects, so to use them sparingly and that was the other reason why we are in decision not to use methadone at this time. 2. We will check buccal drug screen on this patient today to see what medications the patient may have been taking that we are unaware of and he is unaware of why he was in the long-term care facility and we have no list of medications today. The patient is agreeable with this. 3. The patient will be seen in 1 month followup. We will discuss how his medications are helpful with his low back pain. The son will be present at that visit as well. [facility] [address] [place] [address] PAIN MANAGEMENT CONSULTATION Name: OMARI RUSSO Room #: REG CLNora Florez#: [id number] Admission: 05/15/18 ������������������ Attend Phys: Danika Caban Discharge: ������������������ Date of : 43 Report #: [id number] 4. The patient does tell me he has been riding the bike. He has been walking and he has lost weight since our last visit. He looks more alert than we have seen him in quite a while and encouraged him to continue his exercise at home: 5. The patient is seen in collaboration with as well as Dr. Smith was present for part of the visit today. ��������������������������������������������� <ELECTRONICALLY SIGNED> ���������������������������������������� By: Danika Caban ��������������������������������������������� 05/18/18 1404 1230 2208 Danika Caban /annette
== END ==
LOC: PAIN 07:12
DX: M54.5 Low back pain (principal); G89.29 Other chronic pain; M19.90 Unspecified osteoarthritis, unspecified site; I25.10 Atherosclerotic heart disease of native coronary artery without angina pectoris; I10 Essential (primary) hypertension; E78.5 Hyperlipidemia, unspecified; E11.9 Type 2 diabetes mellitus without complications; G93.1 Anoxic brain damage, not elsewhere classified; Z79.4 Long term (current) use of insulin; Z79.899 Other long term (current) drug therapy; Z99.81 Dependence on supplemental oxygen

== ENCOUNTER → 2018-06-15 | Outpatient (CLI) | payer OTHER ==
[~2018-06-15] VITALS: Ht 170.2 cm; Wt 108.3 kg
[~2018-06-15] MED LIST changes: +OXYCODONE-ACET1 EAC2 PO; +RECTICARE30 GM TOP
[2018-06-15 11:29] VITALS: BP 129/58
--- NOTE | 2018-06-15 11:38 | NUR ---
Pain Clinic Assessment: 1. History of Osteoarthritis: Left Lower Extremity Left Upper Extremity Right Lower Extremity Right Upper Extremity History of Rheumatoid Arthritis: Not Applicable 2. Height: 5 ft. 7 in. 170.2 cm. Weight: 238.8 lb. oz. 108.319 kg. Patient's BMI: 37.4 3. Vital Signs: BP: 129/58 Pulse: 73 Resp: 14 Temp: 02 Sat: 95 ECG Mon: 4. Pain Intensity: 6 5. Fall Risk: Dizziness: N Needs help standing or walking: N Fallen in the last 3 months: N Fall risk comments: 6. Patient on Blood Thinner: Clopidogrel Bisulf(Plavix 7. History of Hypertension: Y 8. Opioid Therapy greater than 6 weeks: Y Opiate Contract Signed: 10/30/15 9. Risk Assessment Tool Provided: 0 LOW RISK 10. Functional Assessment Tool: 11. Recreational Drug Use: Never Drug Type: Tobacco Use: Never Smoker Tobacco Type: Amount or Packs/day: How Many Years: Alcohol Use: No Frequency: Quant:
--- NOTE | 2018-06-16 07:50 | HPC ---
[facility] [address] [place] [address] PAIN MANAGEMENT CONSULTATION Name: OMARI RUSSO Room #: REG CL [facility].#: [id number] Admission: 06/15/18 ������������������ Attend Phys: Danika Caban Discharge: ������������������ Date of : 43 Report #: [id number] THIS REPORT FOR: //name// CC: Danika Prieto DATE OF SERVICE: 06/15/2018 CHIEF COMPLAINT: Low back pain. HISTORY OF PRESENT ILLNESS: This is a very pleasant 73-year-old gentleman who returns to the pain clinic today for evaluation of his medications. His son is here present with him today. He tells me that he continues to have low back pain that radiates down his both legs. He feels that the oxycodone is helpful, that may be not as good of pain relief as when he had the methadone as well as the oxycodone. He rates his pain score as 6/10 today. He tells me he has been doing his activity and walking and exercises at home. His medications are helpful as well as lying down. He does also complain of some post-thoracotomy pain on his right side. He tells me that he has continued to live with his friend where they make his house handicap accessible. He is wearing his oxygen at times. He wore it in today, but then saw that his pulse ox according to his meter was 91, so therefore he removed his oxygen. He tells me he wears it as needed, especially when he is walking his dogs. He always wears his oxygen while doing activities. ALLERGIES: KEFLEX, AVELOX, CYMBALTA, SULFA, STATINS, IODINE, ASPIRIN, ERYTHROMYCIN, CLINDAMYCIN, CLONIDINE, MELOXICAM, ZETIA, LYRICA, MILK. CURRENT LIST OF MEDICATIONS: Oxycodone 10/325 three times a day, furosemide 20 mg daily, losartan 25 mg daily, MiraLax twice a day, nitro as needed, insulin Lantus 5 units at bedtime, NovoLog sliding scale, Colace as needed, folic acid 400 mcg daily, vitamin B12 500 mcg daily, gabapentin 300 mg 3 times a day, sertraline 100 mg daily, Namenda 10 mg b.i.d., Exelon patch, Plavix 75 mg daily, Zofran b.i.d. as needed, Lovaza 2000 mg daily, Drisdol weekly and amlodipine 10 mg daily. PQRS: 1. The patient has history of osteoarthritis in his upper and lower extremity, denies rheumatoid arthritis. 2. Height is 5 feet 7 inches, weight is 238. BMI is 37.4. 3. Vital signs: Blood pressure 129/58, pulse is 73, respirations 14, oxygen sat is 95. 4. Pain score 6/10. 5. Fall risk: Denies dizziness. Does not need help walking or standing, has not fallen in the last 3 months. 6. The patient is on blood thinner of Plavix. [place] [address] PAIN MANAGEMENT CONSULTATION Name: OMARI RUSSO Room #: DOMENICO Florez#: [id number] Admission: 06/15/18 ������������������ Attend Phys: Danika Caban Discharge: ������������������ Date of : 43 Report #: [id number] hypertension. 7. Opioid therapy is greater than 6 weeks, therefore, an opioid signed contract is on the chart. 8. Risk assessment tool is low. His functional assessment is 20/70. 9. Recreational drug use: He denies smoking, does not use recreational drugs and does not drink alcohol. We did check the prescription monitoring system. The patient is filling appropriately for his medications and he is due for his refill today. PHYSICAL EXAMINATION: GENERAL: This is a well-developed, well-nourished, well-hydrated 73-year-old gentleman who appears his stated age. His affect is appropriate. His speech is fluent, though sometimes he has a stutter or word searching. HEENT: Normocephalic, atraumatic. Extraocular eye muscles are intact. Mucous membranes are moist. CHEST: He currently has 3 liters nasal cannula oxygen with him, continuous pulse ox around his neck. He has stopped the oxygen while sitting in the chair extremity. BACK: Without significant scoliosis, kyphosis or lordosis. He does complain of pain around his right thoracotomy scar as well as in his lower back. EXTREMITIES: The patient's lower extremity strength judged to be 4/5 in all major muscle groups. He can move from sitting to standing without difficulty and does walk with a slightly antalgic gait. IMPRESSION: 1. Chronic low back pain with pain radiating down the L5-S1 distribution. 2. Insulin-dependent diabetic. 3. Osteoarthritis. 4. Coronary artery disease. 5. Chronic oxygen dependent. 6. Hypertension. 7. Hyperlipidemia. 8. Traumatic brain injury with resultant dementia. We reviewed the fact that opiate medications are being used to provide analgesia adequate to support activities of daily living, not attempting to achieve a specific pain score on the 0-10 Visual Analog Scale. The current opiate medications are providing sufficient analgesia to allow the patient to participate in activities of daily living. The patient is not exhibiting any aberrant behavior suggestive of drug diversion. The patient is not having any adverse reactions to medications. The patient is not suffering from daytime somnolence or mental acuity changes. The patient is managing opiate-induced constipation with appropriate ycix-quf-hpozqoc agents and dietary considerations. The patient was counseled on concern for caution with operating a motor vehicle while using opiate medications. [facility] [address] [place] [address] PAIN MANAGEMENT CONSULTATION Name: OMARI RUSSO [id number] Admission: 06/15/18 ������������������ Attend Phys: Danika Caban Discharge: ������������������ Date of : 43 Report #: [id number] A physical exam was performed and the patient's functional status was evaluated. All patients with back pain were advised against the bed rest greater than 4 days and were advised to return to normal activities. Pain score assessment was noted and the treatment plan was reviewed with the patient. All current medications, both prescribed and OTC were reviewed and reconciled on the electronic medical record. Tobacco screening was accomplished and smoking cessation was advised when indicated. BMI was noted and diet/exercise modification was recommended for all patients following outside normal parameters. I reviewed with the patient today their responsibilities to safeguard prescription medications, reviewed their responsibility to utilize medications only as prescribed by the physician. They are to seek and receive pain medications only from 1 physician group ( [facility]). They are to use 1 pharmacy and keep the clinic informed if they change pharmacies. Their responsibilities include making followup visits in a timely fashion and to avoid abrupt discontinuation of medication usage. Their responsibilities further include bringing their medications (bottles from the pharmacy with residual pills) to the visit for possible confirmation of pill counts and the patient understands it is their responsibility to submit to random drug screens to ensure both that the medications prescribed are present, and that no other controlled substances are present. All prescriptions provided today were generated electronically. PLAN: 1. We discussed treatment options with the patient and his son today. The patient tells me that he is doing very well with his Percocet, taking 3 times a day. He usually does not require them at bedtime because when he lies down, his pain is relieved. The patient wondering if he is able to go back on his methadone. He felt that he had better relief with that medication. I did spend some time with the patient and family discussing the [facility] guidelines and we would like to keep the patient on the lowest most effective dose. I did discuss this with Dr. Orlando Fontenot who actually saw the patient as well today and we will increase his Percocet 10/325 to 4 tablets a day, that will keep the patient at 60 morphine milliequivalents a day and enable him to take one tablet throughout the day as needed up to 4 times. The patient and son is agreeable with this. We would give them 2 months of this medication. 2. The patient tells me that he is having some increased pain in his right back in relation to where his previous thoracotomy was from his lobectomy. We will try some lidocaine on that. Script given for recta care lidocaine. He tells me that lidocaine has been helpful in the past. I would try some lidocaine patches, but since he has never had postherpetic neuralgia, I do not think that it will be covered, so we will try this cream. He does have someone that can help put it on his back when this pain is bothersome. I did explain to them that this medicine is also hqgs-taq-qeufkvq. 3. The patient will be seen in 2 months' time. [facility] [address] [place] [address] PAIN MANAGEMENT CONSULTATION Name: OMARI RUSSO Room #: REG LAUREN Florez#: [id number] Admission: 06/15/18 ������������������ Attend Phys: Danika Caban Discharge: ������������������ Date of : 41 Report #: [id number] As I said, Dr. Fontenot did see the patient in collaborative care. ��������������������������������������������� <ELECTRONICALLY SIGNED> ���������������������������������������� By: Danika Caban ��������������������������������������������� 06/16/18 0750 [id number] [id number] Danika Caban /nt
== END ==
LOC: PAIN 06:57
DX: S06.9X0A Unspecified intracranial injury without loss of consciousness, initial encounter (principal); M54.5 Low back pain; E11.9 Type 2 diabetes mellitus without complications; M19.90 Unspecified osteoarthritis, unspecified site; I25.10 Atherosclerotic heart disease of native coronary artery without angina pectoris; I10 Essential (primary) hypertension; E78.5 Hyperlipidemia, unspecified; X58.XXXA Exposure to other specified factors, initial encounter; Y93.89 Activity, other specified; Y92.89 Other specified places as the place of occurrence of the external cause; Y99.8 Other external cause status; Z79.899 Other long term (current) drug therapy; Z79.4 Long term (current) use of insulin; Z99.81 Dependence on supplemental oxygen

== ENCOUNTER → 2018-08-10 | Outpatient (CLI) | payer OTHER ==
[~2018-08-10] VITALS: Ht 170.2 cm; Wt 95.3 kg
[2018-08-10 11:44] VITALS: BP 132/76
--- NOTE | 2018-08-10 11:50 | NUR ---
Pain Clinic Assessment: 1. History of Osteoarthritis: Left Lower Extremity Left Upper Extremity Right Lower Extremity Right Upper Extremity History of Rheumatoid Arthritis: Not Applicable 2. Height: 5 ft. 7 in. 170.2 cm. Weight: 210.0 lb. oz. 95.256 kg. Patient's BMI: 32.9 3. Vital Signs: BP: 132/76 Pulse: 77 Resp: 18 Temp: 02 Sat: 99 ECG Mon: 4. Pain Intensity: 7-8 5. Fall Risk: Dizziness: N Needs help standing or walking: N Fallen in the last 3 months: N Fall risk comments: 6. Patient on Blood Thinner: Clopidogrel Bisulf(Plavix 7. History of Hypertension: Y 8. Opioid Therapy greater than 6 weeks: Y Opiate Contract Signed: 10/30/15 9. Risk Assessment Tool Provided: 0 LOW RISK 10. Functional Assessment Tool: 11. Recreational Drug Use: Never Drug Type: Tobacco Use: Never Smoker Tobacco Type: Amount or Packs/day: How Many Years: Alcohol Use: No Frequency: Quant:
--- NOTE | 2018-08-11 09:09 | HPC ---
[facility] [address] [place] [address] PAIN MANAGEMENT CONSULTATION Name: OMARI RUSSO Room #: REG CL MKelly.#: [id number] Admission: 08/10/18 ������������������ Attend Phys: Danika Caban Discharge: ������������������ Date of : 43 Report #: [id number] THIS REPORT FOR: //name// CC: Danika Prieto DATE OF SERVICE: 08/10/2018 CHIEF COMPLAINT: Chronic low back pain with lumbar radiculopathy. HISTORY OF PRESENT ILLNESS: This is a pleasant 73-year-old gentleman who returns to the pain clinic today for refill of his medications. He is alone and drove himself today. He tells me he did take back roads and was very careful in driving for his appointment today. He tells me that his lower back continues to hurt. It does radiate into the front of his thighs and radiates all the way to his toes. He also is complaining of bilateral hand pain today. His pain score today is 7-8/10, mostly a constant achy pain that is worse with activity and walking and standing. He would like a refill of his medications today as well as to schedule an appointment for possible epidural steroid injection. ALLERGIES: KEFLEX, AVELOX, CYMBALTA, SULFA, IODINE, STATINS, ASPIRIN, ERYTHROMYCIN, CLINDAMYCIN, CLONIDINE, MELOXICAM, ZETIA, LYRICA and MILK. CURRENT LIST OF MEDICATIONS: Oxycodone 10/325 four times a day, torsemide 40 mg daily, losartan 25 mg daily, MiraLax daily, nitroglycerin as needed, Lantus 5 units at bedtime, NovoLog before meals, Colace, folic acid, B12, Neurontin 300 mg 3 times a day, Zoloft 100 mg at bedtime, Namenda 10 mg b.i.d., Exelon patch 9.5 mg, Plavix 75 mg daily, Zofran p.r.n., Lovaza 2000 mg b.i.d., Drisdol 50,000 units weekly and amlodipine p.r.n. PQRS: 1. The patient has a history of osteoarthritis in his upper and lower extremities and denies any rheumatoid arthritis. 2. Height is 5 feet 7 inches, weight is 210 and BMI is 32. 3. VITAL SIGNS: Blood pressure 132/76, pulse of 77, respirations 18 and oxygen sat is 99. 4. Pain score is 7-8. 5. Fall risk. Denies dizziness. He does not need help walking today, not using a cane. He has not fallen in the last 3 months. 6. The patient is on Plavix and does also take medicine for hypertension. 7. Opioid therapy is greater than 6 weeks; therefore, an opioid signed contract is on the chart. His risk assessment tool is low. Functional assessment is 20/70. 8. Recreational drug use, he denies. He is not a smoker and does not drink alcohol. [address] [address] PAIN MANAGEMENT CONSULTATION Name: OMARI RUSSO Room #: REG CLNora Florez#: [id number] Admission: 08/10/18 ������������������ Attend Phys: Danika Caban Discharge: ������������������ Date of : 43 Report #: [id number] We did check the prescription monitoring system. The patient is due for his medications, actually past due and should have filled them last week. There is a recent drug screen on the chart as well. He tells me he does safeguard his medications. PHYSICAL EXAMINATION: GENERAL: This is a well-developed, well-nourished, well-hydrated 73-year-old gentleman who appears his stated age. His affect is appropriate. His speech is fluent, though somewhat stutter in at times or word searching. HEENT: Normocephalic and atraumatic. Extraocular eye muscles are intact. Mucous membranes are moist. CHEST: He currently has his oxygen with him while he is sitting in a chair. He is not using it and his oxygen sats are 95%. No shortness of breath is noted. BACK: Without significant scoliosis, kyphosis or lordosis. The patient has pain and discomfort in his lower portion of his back. It radiates down the L5-S1 dermatomal distribution with the greatest pain in his left thigh but does have numbness and tingling in his bilateral feet. He uses his hands to move from a sitting position to a walking position. He does also have pain with rotation and forward flexion. Pain is also caused with provocative testing and external rotation and lateral flexion, this exhibited moderate pain that was reproducible. The patient does walk with a slightly antalgic gait. IMPRESSION: 1. Chronic low back pain, pain generating from the L5-S1 distribution. 2. Osteoarthritis. 3. Insulin-dependent diabetic. 4. Chronic oxygen dependent. 5. Traumatic brain injury with resultant dementia. 6. Complex medical management in terms of written opioid agreement. We reviewed the fact that opiate medications are being used to provide analgesia adequate to support activities of daily living, not attempting to achieve a specific pain score on the 0-10 Visual Analog Scale. The current opiate medications are providing sufficient analgesia to allow the patient to participate in activities of daily living. The patient is not exhibiting any aberrant behavior suggestive of drug diversion. The patient is not having any adverse reactions to medications. The patient is not suffering from daytime somnolence or mental acuity changes. The patient is managing opiate-induced constipation with appropriate oenq-aod-qibbqbz agents and dietary considerations. The patient was counseled on concern for caution with operating a motor vehicle while using opiate medications. A physical exam was performed and the patient's functional status was evaluated. All patients with back pain were advised against the bed rest greater than 4 days and were advised to return to normal activities. Pain score assessment was noted and the treatment plan was reviewed with the patient. All current [address] [address] PAIN MANAGEMENT CONSULTATION Name: [facility]MARI [facility]USSO [facility] [id number] Admission: 08/10/18 ������������������ Attend Phys: Danika Caban Discharge: ������������������ Date of : 43 Report #: [id number] medications, both prescribed and OTC were reviewed and reconciled on the electronic medical record. Tobacco screening was accomplished and smoking cessation was advised when indicated. BMI was noted and diet/exercise modification was recommended for all patients following outside normal parameters. I reviewed with the patient today their responsibilities to safeguard prescription medications, reviewed their responsibility to utilize medications only as prescribed by the physician. They are to seek and receive pain medications only from 1 physician group ([facility]). They are to use 1 pharmacy and keep the clinic informed if they change pharmacies. Their responsibilities include making followup visits in a timely fashion and to avoid abrupt discontinuation of medication usage. Their responsibilities further include bringing their medications (bottles from the pharmacy with residual pills) to the visit for possible confirmation of pill counts and the patient understands it is their responsibility to submit to random drug screens to ensure both that the medications prescribed are present, and that no other controlled substances are present. All prescriptions provided today were generated electronically. IMAGING DATA: There is recent MRI of the lumbar spine without contrast from 08/05/2018. The findings indicate a trace anterolisthesis at L4-L5, moderate multilevel degenerative disk desiccation and disk height loss, trace degenerative endplate edema at T12 and L1 and L5-S1 and also shows a disk bulge at L5-S1 with mild facet arthropathy and mild spinal stenosis. PLAN: 1. We discussed treatment options with the patient today. The plan will be to continue his current pain regimen. He tells me that he wishes he could have a slightly increase in his medications. He is allowed 4 tablets of Oxycodone 10/325 a day. The patient tells me that the majority of the time he only takes 2. I encouraged him to try taking his four tablets a day and see if that is beneficial. 2. We discussed a possible repeat of his lumbar epidural steroid injection. His last injection was in October of 2017, he found that was very beneficial based on his new MRI. I think that would be beneficial for the patient to repeat this epidural at the L5-S1 level which is where he is having his pain. He will need to stop his Plavix for 7 full days prior to an appointment. Instructions were given and an appointment made. 3. Scripts given today of oxycodone 10/325, #120 for today and 4-week release. 4. We also discussed with the patient regarding his blood sugars and how it will be elevated after his epidural steroid injection next week and to make sure that he does check his blood sugars. [address] [address] PAIN MANAGEMENT CONSULTATION Name: OMARI RUSSO Room #: REG LAUREN Florez#: [id number] Admission: 08/10/18 ������������������ Attend Phys: Danika Caban Discharge: ������������������ Date of : 43 Report #: [id number] Fontenot did see the patient and collaborated care. Appointment made for next week. ��������������������������������������������� <ELECTRONICALLY SIGNED> ���������������������������������������� By: Danika Caban ��������������������������������������������� 08/11/18 0909 [id number] Danika Caban /nt
== END ==
LOC: PAIN 06:46
DX: G89.29 Other chronic pain (principal); M54.16 Radiculopathy, lumbar region; E11.9 Type 2 diabetes mellitus without complications; M19.90 Unspecified osteoarthritis, unspecified site; Z88.2 Allergy status to sulfonamides; Z91.011 Allergy to milk products; Z88.8 Allergy status to other drugs, medicaments and biological substances; Z88.1 Allergy status to other antibiotic agents; Z79.4 Long term (current) use of insulin

== ENCOUNTER → 2018-08-19 | Outpatient (CLI) | payer OTHER ==
[~2018-08-19] VITALS: Ht 170.2 cm; Wt 99.3 kg
[2018-08-19 10:08] VITALS: BP 139/64
--- NOTE | 2018-08-19 10:31 | NUR ---
Pain Clinic Assessment: 1. History of Osteoarthritis: Left Lower Extremity Left Upper Extremity Right Lower Extremity Right Upper Extremity History of Rheumatoid Arthritis: Not Applicable 2. Height: 5 ft. 7 in. 170.2 cm. Weight: 219.0 lb. oz. 99.338 kg. Patient's BMI: 34.3 3. Vital Signs: BP: 139/64 Pulse: 71 Resp: 14 Temp: 02 Sat: 96 ECG Mon: 4. Pain Intensity: 6-7 5. Fall Risk: Dizziness: N Needs help standing or walking: N Fallen in the last 3 months: N Fall risk comments: 6. Patient on Blood Thinner: Clopidogrel Bisulf(Plavix 7. History of Hypertension: Y 8. Opioid Therapy greater than 6 weeks: Y Opiate Contract Signed: 10/30/15 9. Risk Assessment Tool Provided: 0 LOW RISK 10. Functional Assessment Tool: 11. Recreational Drug Use: Never Drug Type: Tobacco Use: Never Smoker Tobacco Type: Amount or Packs/day: How Many Years: Alcohol Use: No Frequency: Quant:
--- NOTE | 2018-08-21 16:10 | HPC ---
[facility] [place] [address] PAIN MANAGEMENT CONSULTATION Name: OMARI RUSSO Room #: REG CL [place].#: [id number] Admission: 08/19/18 ������������������ Attend Phys: Steve Smith MD Discharge: ������������������ Date of : 43 Report #: [id number] THIS REPORT FOR: //name// CC: Tino Smith DATE OF SERVICE: 08/19/2018 CHIEF COMPLAINT: Pain in the low back area. HISTORY: The patient is a 73-year-old gentleman who has been followed in the pain clinic because of chronic pain and is experiencing pain radiating down into his leg. He has returned today with a desire to undergo an epidural steroid injection. He has undergone epidural steroid injections in the past and found them beneficial. He is having pain in his low back it is radiating down into the inner aspects of both thighs and into the anterior portion of his hands bilaterally. He rates the pain as a 6-7/10. He describes as constant tenderness, sharp, burning and stabbing. It is exacerbated when he is walking, standing, sitting or remains at a constant activity. Epidurals in the past have been beneficial. He has returned today with a desire to undergo another injection. ALLERGIES: CEPHALEXIN, AVELOX, CYMBALTA, SULFA, IODINE, STATINS, ASPIRIN, ERYTHROMYCIN, CLINDAMYCIN, CLONIDINE, MELOXICAM, ZETIA, LYRICA, AND MILK. CURRENT MEDICATIONS: Oxycodone 10 mg 1 p.o. q.i.d., torsemide 40 mg daily, losartan 25 mg, MiraLax daily, nitroglycerin p.r.n., Lantus 5 mg at bedtime, NovoLog before meals, Colace, folic acid, B12, Neurontin 300 mg t.i.d., Zoloft 100 mg at bedtime, Namenda 10 mg b.i.d., Exelon patch 9.5 mg, Plavix 75 mg daily, Zofran p.r.n., Lovaza 2000 mg b.i.d., Drisdol 50,000 units weekly, and amlodipine, p.r.n. PAIN CLINIC ASSESSMENT/PQRS: 1. The patient has a history of osteoarthritis in his upper and lower extremities. He is not being treated for rheumatoid arthritis. 2. Height 5 feet 7 inches, weight 219 pounds, BMI 34.3. 3. Vital Signs: Blood pressure 139/64, pulse 71, respiratory rate 14, saturation 96%. 4. Pain intensity 6/7. 5. Fall risk. The patient has not fallen in the last 3 months. 6. Blood thinner. The patient is on a blood thinning medication, Plavix, which he has stopped. 7. History of hypertension. The patient is being treated for hypertension. 8. Opiates greater than 6 weeks. The patient received medications through the pain clinic. 9. Risk assessment tool, low for opioid use. [address] [address] PAIN MANAGEMENT CONSULTATION Name: OMARI RUSSO Room #: REG CLNora Florez#: [id number] Admission: 08/19/18 ������������������ Attend Phys: Steve Smith MD Discharge: ������������������ Date of : 43 Report #: [id number] 10. Functional assessment tool . 11. Recreational drug use. The patient denies. 12. Tobacco: The patient has never smoked. 13. Alcohol: The patient denies use of alcoholic beverages. PHYSICAL EXAMINATION: GENERAL: The patient is a well-developed, well-nourished white male. Appears his stated age. He is alert and oriented x 3. Affect appropriate. Speech is fluent. HEENT: Normocephalic, atraumatic. Extraocular eye muscles intact. Sclerae nonicteric. Mucous membranes are moist. The patient has oxygen near him. It is in a canister. He is not wearing oxygen at this juncture. The patient is without significant scoliosis, kyphosis or lordosis. He has pain and discomfort in the L4-L5 dermatomal distribution. The patient walks with slightly antalgic gait. He uses hands go from a sitting position to walk mode. IMPRESSION: 1. Lumbar radiculopathy L4-L5 dermatomal distribution. 2. History of L5-S1 dermatomal distribution pain. 3. Osteoarthritis. 4. Insulin-dependent diabetes. 5. Chronic oxygen dependence. 6. Traumatic brain injury with resultant dimension. 7. Complex medical management in terms of opioid medications. RECOMMENDATIONS: We did discuss the treatment option with the patient. Risks and benefits of an epidural steroid injection in the low back area were discussed. Possible complications of the procedure, which could include but are not limited to infection, worsening pain, no improvement in pain, trauma, muscle weakness and the patient elects to proceed. We explained to the patient that his blood sugars may be elevated as a result of using the cortisol medications. He is aware. If his blood sugars are out of the usual range he will inquire with his primary or call the pain clinic as to what options he should take. The patient would like to proceed with an injection. PROCEDURE NOTE: The patient was taken to the procedure area. He was assisted in getting on examination table. His back was sterilely prepped with a Betadine solution. A 0.25% bupivacaine was infiltrated into the L4-L5 interspace. A 17-gauge Tuohy with loss of resistance technique was used to gain access to the epidural space. There was no CSF, heme or paresthesia. A total of 80 mg Depo-Medrol, 40 mg triamcinolone and 2 mL of 0.25% bupivacaine was injected. The patient tolerated the procedure well. We again refined the patient that when he comes to the pain clinic he should ask the staff to plug in his oxygen. He does have a small canister, which holds about 4 hours of oxygen, he states that he would. The patient was then taken to the recovery room where he remained for an appropriate amount of time. A total of 20 seconds fluoroscopy [facility] [address] [place] [address] PAIN MANAGEMENT CONSULTATION Name: OMARI RUSSO Room #: REG CLI [facility].#: [id number] Admission: 08/19/18 ������������������ Attend Phys: Steve Smith MD Discharge: ������������������ Date of : 43 Report #: [id number] time was used. The patient's pain decreased to 0 at the time of discharge. He will call us if he has any concerns. We would like to thank you for letting us participate in his care. ��������������������������������������������� <ELECTRONICALLY SIGNED> ���������������������������������������� By: Steve Smith MD ��������������������������������������������� 08/21/18 1610 [id number] Steve Smith MD /nt
== END | disposition home or self-care (01) ==
LOC: PAIN 06:46
DX: M54.16 Radiculopathy, lumbar region (principal); G89.29 Other chronic pain; E11.9 Type 2 diabetes mellitus without complications; M19.90 Unspecified osteoarthritis, unspecified site; Z99.81 Dependence on supplemental oxygen; Z87.820 Personal history of traumatic brain injury; Z79.891 Long term (current) use of opiate analgesic; Z88.2 Allergy status to sulfonamides; Z91.041 Radiographic dye allergy status; Z88.8 Allergy status to other drugs, medicaments and biological substances; Z79.899 Other long term (current) drug therapy; Z79.4 Long term (current) use of insulin; Z98.890 Other specified postprocedural states

== ENCOUNTER → 2018-11-20 | Outpatient (CLI) | payer OTHER ==
[~2018-11-20] VITALS: Ht 170.2 cm; Wt 99.8 kg
[~2018-11-20] MED LIST changes: +BASAGLAR K100 UNIT/1 SUBQ
--- NOTE | ~2018-11-20 | HPC ---
[facility] [place] [address] PAIN MANAGEMENT CONSULTATION Name: OMARI RUSSO Room #: REG [facility] Vikki#: [id number] Admission: 11/20/18 ������������������ Attend Phys: Steve Smith MD Discharge: ������������������ Date of : 43 Report #: [id number] THIS REPORT FOR: //name// CC: Tino Smith DATE OF SERVICE: 11/20/2018 CHIEF COMPLAINT: "Here for medication and some pain down in my back and in the legs." HISTORY: The patient is a 73-year-old gentleman who has been followed in the pain clinic. He continues to have pain that radiates down into his legs. He has also undergone epidural steroid injections in the past. He has found that these have been helpful. He has pain that is radiating down into the lower portion of his thighs on both sides. He also has complaints of neck pain. He has had pain that radiates into the anterior portion of his hands. He rates his pain today as an 8/10. The numbness in his left arm radiates and causes some tingling down into his fingertips. He would like to have his medications renewed today. ALLERGIES: CEPHALEXIN, AVELOX, CYMBALTA, SULFA, IODINE, STATINS, ASPIRIN, ERYTHROMYCIN, CLINDAMYCIN, CLONIDINE, MELOXICAM, ZETIA, AND LYRICA. CURRENT MEDICATIONS: Oxycodone 10 mg 1 p.o. q.i.d., torsemide 40 mg daily, losartan 25 mg, MiraLax daily, nitroglycerin p.r.n., Lantus 5 mg at bedtime, NovoLog before meals, Colace, folic acid, B12, Neurontin 300 mg t.i.d., Zoloft 100 mg at bedtime, Namenda 10 mg b.i.d., Exelon patch 9.5 mg, Plavix 75 mg daily, Zofran p.r.n., Lovaza 2000 mg b.i.d., Drisdol 50,000 units weekly, and amlodipine, p.r.n. PAIN CLINIC ASSESSMENT AND PQRS: 1. The patient has a history of osteoarthritis in his upper and lower extremity. He is not being treated for rheumatoid arthritis. 2. Height 5 feet 7 inches, weight 220 pounds, BMI is 34.4. 3. Vital Signs: Blood pressure 136/69, pulse 75, respiratory rate 16, room air saturation 95%. 4. Pain intensity 8/10. 5. Fall risk. The patient has not fallen in the last 3 months. 6. Blood thinner. The patient is on a blood thinning medication, Plavix. 7. History of hypertension. The patient is being treated for hypertension. 8. Opioids greater than 6 weeks. The patient received medication from one source the pain clinic. 9. Risk assessment tool zero/low risk for opioid use. 10. Functional assessment tool . 11. Recreational drug use. The patient has never used recreational drugs. [address] [address] PAIN MANAGEMENT CONSULTATION Name: OMARI RUSSO Room #: REG CLNora Florez#: [id number] Admission: 11/20/18 ������������������ Attend Phys: Steve Smith MD Discharge: ������������������ Date of : 43 Report #: [id number] 12. Tobacco: The patient has never smoked. 13. Alcohol. The patient denies use of alcoholic beverages. PHYSICAL EXAMINATION: GENERAL: The patient is a well-developed, well-nourished 73-year-old gentleman. Appears his stated age. He is alert and oriented x 3. His affect is appropriate. Speech is fluent. HEENT: Normocephalic, atraumatic. Extraocular eye muscles intact. Sclerae nonicteric. Mucous membranes are moist. The patient uses oxygen. MUSCULOSKELETAL: The patient without significant scoliosis, kyphosis or lordosis. He has complaints of pain and discomfort in the upper extremity with pain in the left arm with numbness down into the fingers. He has pain in his low back area with pain that radiates down into his legs. He walks with an antalgic gait. Goes from a sitting to a standing position using his hands. IMPRESSION: 1. Lumbar radiculopathy, L4-L5 dermatomal distribution. 2. History of L5-S1 dermatomal distribution of pain. 3. Osteoarthritis. 4. Insulin-dependent diabetes. 5. Chronic oxygen dependency. 6. Traumatic brain injury with resultant changes. 7. Complex medical management using opioids. 8. Cervical radicular pain with pain radiating down into the left arm with involvement of his fingertips. RECOMMENDATIONS: We discussed treatment options with the patient. At this juncture, we will continue with his current medications. The patient feels that the medications are helpful. He has taken them as prescribed. He would like to continue their use. He is aware that opioid medications can be problematic. They can become less effective over time secondary to development of tolerance. The patient is taking his medication as prescribed per his report. He has no outward signs of dependency. He feels the medications enable him to engage in activities with not be able to without their use, not have any problems with his pulmonary status given the use of these opioid medications. A script for his medications of oxycodone 10 mg 1 p.o. q.i.d., total of 120 have been written. The patient will also continue with lidocaine ____ cream b.i.d. The patient will call us if he has any concerns. We will continue with gabapentin 300 mg 1 p.o. t.i.d. We would like to thank you for letting us participate in his care. He will call us if he has any concerns. ��������������������������������������������� ���������������������������������������� By: ��������������������������������������������� [id number] Steve Smith MD /nt
[2018-11-20 11:02] VITALS: BP 136/69
--- NOTE | 2018-11-20 11:14 | NUR ---
Pain Clinic Assessment: 1. History of Osteoarthritis: Left Lower Extremity Left Upper Extremity Right Lower Extremity Right Upper Extremity History of Rheumatoid Arthritis: Not Applicable 2. Height: 5 ft. 7 in. 170.2 cm. Weight: 220.0 lb. oz. 99.792 kg. Patient's BMI: 34.4 3. Vital Signs: BP: 136/69 Pulse: 75 Resp: 16 Temp: 02 Sat: 95 ECG Mon: 4. Pain Intensity: 8 5. Fall Risk: Dizziness: N Needs help standing or walking: N Fallen in the last 3 months: N Fall risk comments: 6. Patient on Blood Thinner: Clopidogrel Bisulf(Plavix 7. History of Hypertension: Y 8. Opioid Therapy greater than 6 weeks: Y Opiate Contract Signed: 10/30/15 9. Risk Assessment Tool Provided: 0 LOW RISK 10. Functional Assessment Tool: 11. Recreational Drug Use: Never Drug Type: Tobacco Use: Never Smoker Tobacco Type: Amount or Packs/day: How Many Years: Alcohol Use: No Frequency: Quant:
== END ==
LOC: PAIN 10:21
DX: S06.9X0A Unspecified intracranial injury without loss of consciousness, initial encounter (principal); M54.16 Radiculopathy, lumbar region; M54.12 Radiculopathy, cervical region; M19.90 Unspecified osteoarthritis, unspecified site; E11.9 Type 2 diabetes mellitus without complications; Z79.891 Long term (current) use of opiate analgesic; Z88.8 Allergy status to other drugs, medicaments and biological substances; Z79.899 Other long term (current) drug therapy; Z88.2 Allergy status to sulfonamides; Z79.4 Long term (current) use of insulin; X58.XXXA Exposure to other specified factors, initial encounter; Y93.89 Activity, other specified; Y92.89 Other specified places as the place of occurrence of the external cause; Y99.8 Other external cause status

== ENCOUNTER → 2020-12-06 | Outpatient (CLI) | payer OTHER ==
[~2020-12-06] MED LIST changes: +ACETAMINOPHEN500 M1 PO; +LIPITOR80 MG PO; +MELATONIN3 M1 PO; +ROPINIROLE HCL0.5 MG PO; +VITAMIN B-12100 MC1 PO; +VITAMIN D325 MC2 PO
--- NOTE | 2020-12-06 13:15 | NUR ---
Pain Clinic Assessment: 1. History of Osteoarthritis: Left Lower Extremity Left Upper Extremity Right Lower Extremity Right Upper Extremity History of Rheumatoid Arthritis: Not Applicable 2. Height: ft. in. cm. Weight: lb. oz. kg. Patient's BMI: 3. Vital Signs: BP: Pulse: Resp: Temp: 02 Sat: ECG Mon: 4. Pain Intensity: 6 TO 7 5. Fall Risk: Dizziness: N Needs help standing or walking: N Fallen in the last 3 months: Y Fall risk comments: TRIPPED 11/29/20 AND HURT HIS RIGHT LEG 6. Patient on Blood Thinner: Clopidogrel Bisulf(Plavix 7. History of Hypertension: Y 8. Opioid Therapy greater than 6 weeks: N Opiate Contract Signed: 10/30/15 9. Risk Assessment Tool Provided: 0 LOW RISK 10. Functional Assessment Tool: 11. Recreational Drug Use: Never Drug Type: Tobacco Use: Never Smoker Tobacco Type: Amount or Packs/day: How Many Years: Alcohol Use: No Frequency: Quant:
== END ==
LOC: PAIN 10:58
PROVIDERS: ATTEND Anesthesiology Pain Medicine
DX: M47.22 Other spondylosis with radiculopathy, cervical region (principal); M48.02 Spinal stenosis, cervical region; M48.03 Spinal stenosis, cervicothoracic region; M79.672 Pain in left foot

== ENCOUNTER → 2020-12-13 | Outpatient (CLI) | payer OTHER ==
[~2020-12-13] VITALS: Ht 170.2 cm; Wt 98.4 kg
[2020-12-13 12:40] VITALS: BP 121/67
--- NOTE | 2020-12-13 12:52 | NUR ---
Pain Clinic Assessment: 1. History of Osteoarthritis: Left Lower Extremity Left Upper Extremity Right Lower Extremity Right Upper Extremity History of Rheumatoid Arthritis: Not Applicable 2. Height: 5 ft. 7 in. 170.2 cm. Weight: 217.0 lb. oz. 98.431 kg. Patient's BMI: 34.0 3. Vital Signs: BP: 121/67 Pulse: 74 Resp: 16 Temp: 02 Sat: 96 ECG Mon: 4. Pain Intensity: 5 5. Fall Risk: Dizziness: N Needs help standing or walking: N Fallen in the last 3 months: N Fall risk comments: TRIPPED 11/29/20 AND HURT HIS RIGHT LEG 6. Patient on Blood Thinner: Clopidogrel Bisulf(Plavix 7. History of Hypertension: Y 8. Opioid Therapy greater than 6 weeks: N Opiate Contract Signed: 10/30/15 9. Risk Assessment Tool Provided: 0 LOW RISK 10. Functional Assessment Tool: 11. Recreational Drug Use: Never Drug Type: Tobacco Use: Never Smoker Tobacco Type: Amount or Packs/day: How Many Years: Alcohol Use: No Frequency: Quant:
== END ==
LOC: PAIN 10:59
PROVIDERS: ATTEND Anesthesiology Pain Medicine
DX: M47.22 Other spondylosis with radiculopathy, cervical region (principal); M48.02 Spinal stenosis, cervical region; M19.90 Unspecified osteoarthritis, unspecified site; E11.9 Type 2 diabetes mellitus without complications; I11.0 Hypertensive heart disease with heart failure; I50.9 Heart failure, unspecified; J44.9 Chronic obstructive pulmonary disease, unspecified; Z79.4 Long term (current) use of insulin; Z99.81 Dependence on supplemental oxygen; Z88.8 Allergy status to other drugs, medicaments and biological substances; Z88.1 Allergy status to other antibiotic agents; Z88.6 Allergy status to analgesic agent; Z79.899 Other long term (current) drug therapy

== ENCOUNTER → 2021-01-26 | Outpatient (CLI) | payer OTHER ==
[~2021-01-26] VITALS: Ht 170.2 cm; Wt 102.3 kg
[2021-01-26 11:03] VITALS: BP 130/71
--- NOTE | 2021-01-26 11:11 | NUR ---
Pain Clinic Assessment: 1. History of Osteoarthritis: Left Lower Extremity Left Upper Extremity Right Lower Extremity Right Upper Extremity History of Rheumatoid Arthritis: Not Applicable 2. Height: 5 ft. 7 in. 170.2 cm. Weight: 225.6 lb. oz. 102.332 kg. Patient's BMI: 35.3 3. Vital Signs: BP: 130/71 Pulse: 75 Resp: 18 Temp: 02 Sat: 97 ECG Mon: 4. Pain Intensity: 7 5. Fall Risk: Dizziness: N Needs help standing or walking: N Fallen in the last 3 months: N Fall risk comments: ONLY CONCERN IS THAT LEGS AREN'T WORKING WELL--VERY UNSTEADY, WOBBLY. STARTED 01/25/21 6. Patient on Blood Thinner: Clopidogrel Bisulf(Plavix 7. History of Hypertension: Y 8. Opioid Therapy greater than 6 weeks: N Opiate Contract Signed: 10/30/15 9. Risk Assessment Tool Provided: 0 LOW RISK 10. Functional Assessment Tool: 11. Recreational Drug Use: Never Drug Type: Tobacco Use: Never Smoker Tobacco Type: Amount or Packs/day: How Many Years: Alcohol Use: Yes Frequency: Special Occasions Quant: A BEER
== END | disposition home or self-care (01) ==
LOC: PAIN 07:00
PROVIDERS: ATTEND Anesthesiology Pain Medicine
DX: M54.16 Radiculopathy, lumbar region (principal); G89.29 Other chronic pain; J44.9 Chronic obstructive pulmonary disease, unspecified; M19.90 Unspecified osteoarthritis, unspecified site; E11.9 Type 2 diabetes mellitus without complications; Z98.890 Other specified postprocedural states; Z79.899 Other long term (current) drug therapy; Z88.2 Allergy status to sulfonamides; Z88.8 Allergy status to other drugs, medicaments and biological substances

== ENCOUNTER → 2021-04-13 | Outpatient (CLI) | payer OTHER ==
[~2021-04-13] VITALS: Ht 170.2 cm; Wt 103.1 kg
[~2021-04-13] MED LIST changes: +TRAMADOL 50 MG50 MG PO
[2021-04-13 11:37] VITALS: BP 122/62
--- NOTE | 2021-04-13 11:42 | NUR ---
Pain Clinic Assessment: 1. History of Osteoarthritis: Left Lower Extremity Left Upper Extremity Right Lower Extremity Right Upper Extremity History of Rheumatoid Arthritis: Not Applicable 2. Height: 5 ft. 7 in. 170.2 cm. Weight: 227.4 lb. oz. 103.148 kg. Patient's BMI: 35.6 3. Vital Signs: BP: 122/62 Pulse: 77 Resp: 16 Temp: 02 Sat: 91 ECG Mon: 4. Pain Intensity: 7 5. Fall Risk: Dizziness: N Needs help standing or walking: N Fallen in the last 3 months: N Fall risk comments: ONLY CONCERN IS THAT LEGS AREN'T WORKING WELL--VERY UNSTEADY, WOBBLY. STARTED 01/25/21 6. Patient on Blood Thinner: Clopidogrel Bisulf(Plavix 7. History of Hypertension: Y 8. Opioid Therapy greater than 6 weeks: N Opiate Contract Signed: 10/30/15 9. Risk Assessment Tool Provided: 0 LOW RISK 10. Functional Assessment Tool: 11. Recreational Drug Use: Never Drug Type: Tobacco Use: Never Smoker Tobacco Type: Amount or Packs/day: How Many Years: Alcohol Use: No Frequency: Quant:
== END ==
LOC: PAIN 09:44
PROVIDERS: ATTEND Anesthesiology Pain Medicine
DX: M54.12 Radiculopathy, cervical region (principal); M54.16 Radiculopathy, lumbar region; I11.0 Hypertensive heart disease with heart failure; I50.9 Heart failure, unspecified; M19.90 Unspecified osteoarthritis, unspecified site; E11.9 Type 2 diabetes mellitus without complications; Z99.81 Dependence on supplemental oxygen; Z88.8 Allergy status to other drugs, medicaments and biological substances; Z79.4 Long term (current) use of insulin; Z88.3 Allergy status to other anti-infective agents; Z79.899 Other long term (current) drug therapy